=== PATIENT | male | born 1930 | race Caucasian/White ===

== ENCOUNTER 2018-06-18 03:23 | Emergency (ER) | payer BC ==
[2018-06-18 03:56] VITALS: BMI 31.4
--- NOTE | 2018-06-18 04:02 | PDOC ---
History of Present Illness - General Chief Complaint: Back Pain Stated Complaint: PAIN Time Seen by Provider: 06/18/18 04:02 History Source: Patient, Significant Other - History of Present Illness Initial Comments: 06/18/18 06:20 88-year-old male complaining of right-sided lower back pain and spasms for the last 1 week. Prior to arrival patient tried to get up from bed to the bathroom noted to have spasm of the right lower back patient reports that the legs went numb and gave out, patient slid off the bed onto the floor. No LOC or trauma to head report. Reports that. So lower back is worse with movement and when he has to spasm he has numbness to bilateral lower extremities. Past medical history of hypertension, hypercholesterolemia, on Coumadin therapy Past History - Past Medical History Allergies/Adverse Reactions: Allergies Allergy/AdvReac Type Severity Reaction Status Date / Time No Known Allergies Allergy Verified 06/18/18 03:57 Home Medications: Ambulatory Orders NK [No Known Home Medication] 06/18/18 - Suicide/Smoking/Psychosocial Hx Smoking History: Never smoked Have you smoked in the past 12 months: No Information on smoking cessation initiated: No Hx Alcohol Use: No Drug/Substance Use Hx: No Review of Systems - Review of Systems Able to Perform ROS?: Yes Is the patient limited Maltese proficient: No Constitutional: No: Symptoms Reported, See HPI, Chills, Diaphoresis, Fever, Loss of Appetite, Malaise, Night Sweats, Weakness, Weight Stable, Unintentional Wgt. Loss, Unexplained wgt Loss, Other *Physical Exam - Vital Signs Last Vital Signs Temp Pulse Resp BP Pulse Ox 99.2 F 84 18 131/57 L 97 06/18/18 03:23 06/18/18 03:23 06/18/18 03:23 06/18/18 03:23 06/18/18 03:23 - Physical Exam General Appearance: Yes: Appropriately Dressed Respiratory/Chest: positive: Lungs Clear, Normal Breath Sounds Gastrointestinal/Abdominal: positive: Normal Bowel Sounds, Soft Musculoskeletal: positive: Muscle Spasm (right lower back pain), Vertebral Tenderness (no midline tenderness) Extremity: positive: Normal Capillary Refill, Normal Inspection, Normal Range of Motion Integumentary: positive: Normal Color, Dry, Warm Neurologic: positive: Fully Oriented, Alert, Normal Mood/Affect Moderate Sedation - Procedure Monitoring Vital Signs: Procedure Monitoring Vital Signs Temperature 99.2 F 06/18/18 03:23 Pulse Rate 84 06/18/18 03:23 Respiratory Rate 18 06/18/18 03:23 Blood Pressure 131/57 L 06/18/18 03:23 O2 Sat by Pulse Oximetry (%) 97 06/18/18 03:23 Progress Note - Progress Note Progress Note: A: lower back pain P: lidocaine patch tylenol ct lumbar spine ua Medical Decision Making - Medical Decision Making 06/18/18 06:31 patient reports slight relief in pain. *DC/Admit/Observation/Transfer Diagnosis at time of Disposition: Back pain Qualifiers: Back pain location: low back pain Chronicity: acute Back pain laterality: right Sciatica presence: without sciatica Qualified Code(s): M54.5 - Low back pain - Discharge Dispostion Condition at time of disposition: Fair - Referrals Referrals: Alli Elizondo MD [Primary Care Provider] - - Patient Instructions - Post Discharge Activity
[2018-06-18] MEDS ORDERED: LIDOCAINE 5% TOPICAL PATCH TP ONE (04:23)
[2018-06-18] MEDS ORDERED: ACETAMINOPHEN 325 MG TABLET (FP) PO ONE (04:45)
[2018-06-18] MEDS ORDERED: ACETAMINOPHEN 325 MG TABLET (FP) ONE (05:07)
[2018-06-18] MEDS ORDERED: LIDOCAINE 5% TOPICAL PATCH ONE (05:07)
--- NOTE | 2018-06-18 07:56 | PDOC ---
*Physical Exam - Vital Signs Last Vital Signs Temp Pulse Resp BP Pulse Ox 99.2 F 84 18 131/57 L 97 06/18/18 03:23 06/18/18 03:23 06/18/18 03:23 06/18/18 03:23 06/18/18 03:23 - Physical Exam General Appearance: Yes: Appropriately Dressed. No: Apparent Distress HEENT: positive: Normal Voice Neck: positive: Supple Respiratory/Chest: negative: Respiratory Distress Gastrointestinal/Abdominal: positive: Soft. negative: Tender Musculoskeletal: negative: CVA Tenderness Integumentary: positive: Dry, Warm Neurologic: positive: Fully Oriented, Alert, Normal Mood/Affect ED Treatment Course - Medications Given in the ED: ED Medications Discontinued Medications Generic Name Dose Route Start Last Admin Trade Name Eloisa PRN Reason Stop Dose Admin Acetaminophen 650 mg 06/18/18 04:45 06/18/18 05:14 Tylenol - PO 06/18/18 04:46 650 mg ONCE ONE Administration Lidocaine 1 patch 06/18/18 04:23 06/18/18 05:14 Lidoderm Patch - TP 06/18/18 04:24 1 patch ONCE ONE Administration Medical Decision Making - Medical Decision Making 06/18/18 07:57 Patient s/p to me at 7am 88-year-old male, history of HTN, HLD, afib on coumadin, here with R lower back pain resulting in fall. Per prior team, no evidence of serious injuries on exam. Neuro intact. S/p CT LS which is pending. UA also pending. On reassessment, patient's pain has since improved. Reports that he's been having non-radiating R lower back pain 1 week, which caused him to fall onto buttocks last night as witnessed by . No head injury or LOC per pt and family and no LYNN, dizziness, n/v. No CP/dizziness prior to fall. Denies sensory changes, lower extremity weakness, bowel or bladder incontinence or saddle anesthesia. No trauma prior to back pain. Has not since discussed pain with his PMD. 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 Pt states pain has since improved w/ meds and is able to ambulate w/ cane in ED. UA neg. Stable for dc w / pain control. To f/u with pmd this week 06/18/18 09:56 *DC/Admit/Observation/Transfer Diagnosis at time of Disposition: Back pain Qualifiers: Back pain location: low back pain Chronicity: acute Back pain laterality: right Sciatica presence: without sciatica Qualified Code(s): M54.5 - Low back pain - Discharge Dispostion Disposition: HOME Condition at time of disposition: Improved - Prescriptions Prescriptions: Docusate Sodium [Colace] 100 mg PO DAILY #20 capsule Tramadol HCl 50 mg PO Q6H #15 tablet MDD 200 mg - Referrals Referrals: Alli Elizondo MD [Primary Care Provider] - - Patient Instructions Printed Discharge Instructions: DI for Low Back Pain Additional Instructions: Your CAT scan today did not show any alarming findings. You were given a copy to discuss with your PMD this week. You were started on pain medication and stool softeners to prevent constipation. Return to ER for worsening of symptoms - Post Discharge Activity
[2018-06-18 09:13] VITALS: BP 119/64; PULSE 59; TEMP 98.7
[2018-06-18 09:45] LABS: URINE APPEARANCE CLEAR; URINE BILIRUBIN NEGATIVE (<2.0 mg/dL); URINE COLOR LTYELLOW; URINE GLUCOSE (UA) NEGATIVE (NEGATIVE); URINE KETONE NEGATIVE (NEGATIVE); URINE LEUK ESTERASE NEGATIVE (NEGATIVE); URINE NITRITE NEGATIVE (NEGATIVE); URINE PROTEIN NEGATIVE (NEGATIVE); URINE UROBILINOGEN NEGATIVE mg/dL (0.2-1.0)
[2018-06-18 13:11] LABS: EPI CELLS FEW /HPF (FEW); URINE MUCUS 1+
[2018-06-18 13:12] LABS: URINE BACTERIA NONE SEEN /hpf (NONE SEEN)
[2018-06-18] MEDS ORDERED: LIDOCAINE PATCH REMOVAL MC SCH (22:00)
== END 2018-06-18 09:36 | disposition home or self-care (01) ==
LOC: JER 03:23
DX: M54.5 Low back pain (principal); W06.XXXA Fall from bed, initial encounter; Y93.89 Activity, other specified; Y92.013 Bedroom of single-family (private) house as the place of occurrence of the external cause; Y99.8 Other external cause status; I10 Essential (primary) hypertension; E78.00 Pure hypercholesterolemia, unspecified; Z79.01 Long term (current) use of anticoagulants
CPT/HCPCS: 72131-TC; 81003; 81015; 99281-25

== ENCOUNTER 2018-06-20 22:31 | Inpatient (IN) | payer BC ==
--- NOTE | 2018-06-20 23:30 | PDOC ---
Attending Attestation - HPI HPI: 06/20/18 23:49 Patient is an 88 year old male with a significant past medical history of hypertension, hypercholesterolemia, on Coumadin therapy who presents to the ED with complaints of collapse that occurred just prior to ED arrival. As per EMS patient experiencing a syncopal episode this evening prompting NH staff to bring him into the ED for further evaluation. As per patient's son, patient has experiencing altered mental status stating does not recognize his son and is not acting his baseline, as well as associated fever, tachycardia, diaphoresis. Patient was seen in the ED on June 18 for fall and was given, tylenol, lidocaine patch as well as Lumbar CT, and UA. Denies chest pain, sob. Denies nausea, vomiting. Denies chills. Denies dysuria, hematuria, Denies contact with sick individuals, out of state travelling. Denies any other symptoms. Allergies: None Social history: No smoking. No illicit drugs. No alcohol. Surgical history: None PMD: None - Physicial Exam PE: 06/20/18 23:49 Agree with residents Physical Exam. <Jin Gomes - Last Filed: 06/20/18 23:49> - Resident Resident Name: Genaro Parekh - ED Attending Attestation I have performed the following: I have examined & evaluated the patient, The case was reviewed & discussed with the resident, I agree w/resident's findings & plan - Medical Decision Making 06/21/18 02:27 88-year-old male with fever and weakness/altered mental status according to family Sepsis workup initiated, Zosyn and vancomycin given CT scans were performed of the chest abdomen and pelvis which showed no acute pathology Patient will be admitted to medical service for further evaluation 06/21/18 02:28 <Ashley Mendez - Last Filed: 06/21/18 02:29>
[2018-06-20] MEDS ORDERED: PIPERACILLIN/TAZOB 3.375 GM 3.375 GM in DEXTROSE 5%-WATER - 50 ML IVPB ONE (23:37)
[2018-06-20] MEDS ORDERED: VANCOMYCIN 1 GM in D5W (PRE-DOCKED) 1,000 MG/250 ML IVPB ONE (23:37)
[2018-06-20] MEDS ORDERED: ACETAMINOPHEN 1000 MG/100 ML VIAL (NON FORMULARY) IVPB ONE (23:37)
[2018-06-20] MEDS ORDERED: SODIUM CHLORIDE 1,000 ML IV STA (23:38)
[2018-06-21] MEDS ORDERED: ACETAMINOPHEN INJECTION 100 ML IVPB ONE (00:16)
[2018-06-21] MEDS ORDERED: PIPERACILLIN/TAZOB 3.375 GM 3.375 GM/50 ML BAG IVPB ONE (00:16)
[2018-06-21] MEDS ORDERED: VANCOMYCIN 1 GRAM (PRE-DOCKED) 1,000 MG/250 ML BAG IVPB ONE (00:16)
[2018-06-21 00:21] LABS: VENOUS PC02 41.8 mmHg (41-51); VENOUS PH 7.39 (7.31-7.41)
[2018-06-21 00:28] LABS: BASO % 0.3 % (0-2.0); EOS % 0.8 % (0-4.5); HEMOGLOBIN 14.1 GM/dL (11.7-16.9); LYMPH % 13.3 % (8-40); MCH 32.5 pg (25.7-33.7); MCHC 35.2 g/dl (32.0-35.9); MEAN CELL VOLUME 92.3 fl (80-96); MEAN PLT VOLUME 8.6 fl (7.5-11.1); MONO % 7.5 % (3.8-10.2); NEUT % 78.1 % (42.8-82.8); PLATELET COUNT 88 K/MM3 (134-434); RBC 4.33 M/mm3 (4.00-5.60); WHITE BLOOD COUNT 2.2 K/mm3 (4.0-10.0)
--- NOTE | 2018-06-21 00:29 | PDOC ---
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 His son states that he has not been his normal self, and was unable to recognize him today. Patient fell because one leg gave out and he grazed his head on the side of a table. Patient has been diaphoretic and very weak. Patient endorses pain to his right flank. No sick contacts. Patient was worked up for fall on , UA and CT lumbar spine were normal. Past History - Past Medical History Allergies/Adverse Reactions: Allergies Allergy/AdvReac Type Severity Reaction Status Date / Time No Known Allergies Allergy Verified 06/20/18 23:20 Home Medications: Ambulatory Orders Docusate Sodium [Colace] 100 mg PO DAILY #20 capsule 06/18/18 Tramadol HCl 50 mg PO Q6H #15 tablet MDD 200 mg 06/18/18 COPD: No - Immunization History Immunization Up to Date: (Unknown) - Suicide/Smoking/Psychosocial Hx Smoking History: Never smoked Have you smoked in the past 12 months: No Information on smoking cessation initiated: No Hx Alcohol Use: No Drug/Substance Use Hx: No Review of Systems - Review of Systems Able to Perform ROS?: Yes Comments:: 06/21/18 00:26 GENERAL/CONSTITUTIONAL: +fever +chills. +diffuse weakness. HEAD, EYES, EARS, NOSE AND THROAT: No change in vision. No sore throat. CARDIOVASCULAR: No chest pain or shortness of breath RESPIRATORY: No cough, wheezing, or hemoptysis. GASTROINTESTINAL: No nausea, vomiting, diarrhea or constipation. GENITOURINARY: No dysuria, frequency, or change in urination. MUSCULOSKELETAL: No joint or muscle swelling or pain. No neck pain, +r flank pain SKIN: No rash NEUROLOGIC: No headache, vertigo, loss of consciousness, or change in strength/ sensation. ENDOCRINE: No increased thirst. No abnormal weight change HEMATOLOGIC/LYMPHATIC: No anemia, easy bleeding, or history of blood clots. ALLERGIC/IMMUNOLOGIC: No hives or skin allergy. *Physical Exam - Vital Signs Last Vital Signs Temp Pulse Resp BP Pulse Ox 100.9 F H 122 H 18 154/90 98 06/20/18 23:20 06/20/18 23:20 06/20/18 23:20 06/20/18 23:20 06/20/18 23:20 - Physical Exam Comments: 06/21/18 00:26 GENERAL: Awake, alert, diaphoretic HEAD: No signs of trauma, normocephalic, atraumatic EYES: PERRLA, EOMI, sclera anicteric, conjunctiva clear ENT: Auricles normal inspection, hearing grossly normal, nares patent, oropharynx clear without exudates. Moist mucosa NECK: Normal ROM, supple, no lymphadenopathy, JVD, or masses LUNGS: No distress, speaks full sentences, clear to auscultation bilaterally HEART: Regular rate and rhythm, normal S1 and S2, no murmurs, rubs or gallops, peripheral pulses normal and equal bilaterally. ABDOMEN: Soft, nontender, normoactive bowel sounds. No guarding, no rebound. No masses. + R CVA tenderness EXTREMITIES: Normal range of motion, no edema. No clubbing or cyanosis. NEUROLOGICAL: Cranial nerves II through XII grossly intact. Normal speech, normal gait, no focal sensorimotor deficits SKIN: Warm, Dry, normal turgor, no rashes or lesions noted. Moderate Sedation - Procedure Monitoring Vital Signs: Procedure Monitoring Vital Signs Temperature 100.9 F H 06/20/18 23:20 Pulse Rate 122 H 06/20/18 23:20 Respiratory Rate 18 06/20/18 23:20 Blood Pressure 154/90 06/20/18 23:20 O2 Sat by Pulse Oximetry (%) 98 06/20/18 23:20 ED Treatment Course - LABORATORY CBC & Chemistry Diagram: 06/21/18 00:03 06/21/18 00:03 - RADIOLOGY Radiology Studies Ordered: Category Date Time Status CERVICAL SPINE CT W/O CONTR [CT] Stat CT Scan 06/21/18 01:[address] WITHOUT CONTRAST [CT] Stat CT Scan 06/21/18 01:00 Ordered CHEST X-RAY PORTABLE* [RAD] Stat Radiology 06/21/18 01:00 Ordered Medical Decision Making - Medical Decision Making 06/21/18 00:27 Patient is 88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 Septic. DDx for source , includes, but is not limited to: uti, pneumonia, flu. Will empirically treat with vanc and zosyn given patient's diaphoresis. Will start with 1L, give tylenol as well. Cultures gathered before antibiotic administration. Will do ct head/c-spine for trauma workup, no other apparent injuries noted other than small scrape on R elbow. 06/21/18 02:25 CT A/P/C shows no acute pathology. 4.4cm ascending aortic aneurysm, no pneumonia , no signs of appy or mishel or inflammation in RUQ. Cervical spine CT shows no fracture. My wet read of head CT shows no bleed or fracture. Pending official read, delay caused by power interruption during transmission to imaging radiation protection technician. UA shows no LE/Nitrites, no wbcs, rare bacteria. CBC shows leukopenia, trop of 0.08, likely pre-renal ALEXANDRE. Will admit. Unsure of source. Flu pending. Meningitis considered, but patient has normal rom in neck, no pain, no stiffness. 06/21/18 05:42 Case d/w Dr Linda. *DC/Admit/Observation/Transfer Diagnosis at time of Disposition: Fever - Discharge Dispostion Condition at time of disposition: Stable Decision to Admit order: Yes - Referrals - Patient Instructions - Post Discharge Activity
[2018-06-21 00:30] LABS: URINE APPEARANCE CLOUDY; URINE BILIRUBIN NEGATIVE (<2.0 mg/dL); URINE GLUCOSE (UA) NEGATIVE (NEGATIVE); URINE KETONE NEGATIVE (NEGATIVE); URINE LEUK ESTERASE NEGATIVE (NEGATIVE); URINE NITRITE NEGATIVE (NEGATIVE); URINE PROTEIN 2+ (NEGATIVE)
[2018-06-21 00:36] LABS: URINE COLOR YELLOW
[2018-06-21 00:39] LABS: INR 1.69 (0.83-1.09); PROTHROMBIN TIME (PATIENT) 20.1 SEC (9.7-13.0)
[2018-06-21 00:42] LABS: ACTIVATED PTT 31.5 SECONDS (25.2-36.5)
[2018-06-21 00:56] LABS: ALBUMIN 3.5 g/dl (3.4-5.0); ALK PHOS 53 U/L (45-117); ANION GAP 7 MMOL/L (8-16); BILIRUBIN,TOTAL 1.6 mg/dL (0.2-1); BLOOD UREA NITROGEN 38 mg/dL (7-18); CALCIUM 8.2 mg/dL (8.5-10.1); CHLORIDE 103 mmol/L (98-107); CO2 25 mmol/L (21-32); CREATININE 1.9 mg/dL (0.55-1.3); GLUCOSE,RANDOM 148 mg/dL (74-106); POTASSIUM 3.3 mmol/L (3.5-5.1); SGOT/AST 114 U/L (15-37); SGPT/ALT 43 U/L (13-61); SODIUM 135 mmol/L (136-145); TOT PROT 7.2 g/dl (6.4-8.2)
[2018-06-21 01:42] LABS: EPI CELLS RARE /HPF (FEW); URINE BACTERIA RARE /hpf (NONE SEEN); URINE MUCUS FEW
--- NOTE | 2018-06-21 04:54 | HP ---
CHIEF COMPLAINT: Fever and Fall PCP: HISTORY OF PRESENT ILLNESS: Pt. is an 88 y.o. M presenting after a fall at home because his leg "gave out." Pt. was recently seen in the ED 3 days ago for a similar episode. Workup was found to be negative at that time for acute pathology. Pt. was discharged on Flexeril 10mg. Per the daughter Pt. had improvement of the back pain. Pt. stated that he fell forward and "grazed his head on the table." Pt. denies any lightheadedness or dizziness before the fall and denies LOC. Pt. endorses tenderness of lower extremities particularly the lateral aspect of the left leg. Pt. endorses fever and diaphoresis. Pt. denies any chest pain, headache, shortness of breath, nausea, vomiting, changes in vision, neck pain, changes in bowel or urinary habits. ER course was notable for: (1)labs, EKG, LA (2)Head, C-Spine, Chest/abd/pel/ CT-scans (3) Recent Travel: No PAST MEDICAL HISTORY: HTN, HLD, DVTs(on Coumadin), Afib?(Prior documented however daughter denies ever hearing of this diagnosis), Back Pain, EtoH Abuse( Daughter denies however prior documentation) PAST SURGICAL HISTORY: Vascualar surgery on LE bilaterally x 7. Social History: Smoking: Former smoker quit 20 years ago Alcohol: Denied at first, then stated occasionally, then stated "drinks 1 glass of homemade wine everyday" Drugs: Denies Family History: Allergies No Known Allergies Allergy (Verified 06/20/18 23:20) HOME MEDICATIONS: Home Medications Medication Instructions Recorded Docusate Sodium [Colace] 100 mg PO DAILY #20 capsule 06/18/18 Tramadol HCl 50 mg PO Q6H #15 tablet MDD 200 mg 06/18/18 REVIEW OF SYSTEMS CONSTITUTIONAL: fever, chills, diaphoresis Absent: generalized weakness, malaise, loss of appetite, weight change HEENT: Absent: rhinorrhea, nasal congestion, throat pain, throat swelling, difficulty swallowing, mouth swelling, ear pain, eye pain, visual changes CARDIOVASCULAR: Absent: chest pain, syncope, palpitations, irregular heart rate, lightheadedness , peripheral edema RESPIRATORY: Absent: cough, shortness of breath, dyspnea with exertion, orthopnea, wheezing, stridor, hemoptysis GASTROINTESTINAL: Absent: abdominal pain, abdominal distension, nausea, vomiting, diarrhea, constipation, melena, hematochezia GENITOURINARY: right-side flank pain, Absent: dysuria, frequency, urgency, hesitancy, hematuria, genital pain MUSCULOSKELETAL: Absent: myalgia, arthralgia, joint swelling, back pain, neck pain SKIN: Absent: rash, itching, pallor HEMATOLOGIC/IMMUNOLOGIC: Absent: easy bleeding, easy bruising, lymphadenopathy, frequent infections ENDOCRINE: Absent: unexplained weight gain, unexplained weight loss, heat intolerance, cold intolerance NEUROLOGIC: unsteady gait Absent: headache, focal weakness or paresthesias, dizziness, seizure, mental status changes, bladder or bowel incontinence PSYCHIATRIC: Absent: anxiety, depression, suicidal or homicidal ideation, hallucinations. PHYSICAL EXAMINATION Vital Signs - 24 hr 06/20/18 23:20 Temperature 100.9 F H Pulse Rate 122 H Respiratory 18 Rate Blood Pressure 154/90 O2 Sat by Pulse 98 Oximetry (%) GENERAL: Awake, alert, in no acute distress. HEAD: Bruises on right ear and left frontal EYES: Pupils equal, round and reactive to light, extraocular movements intact, sclera anicteric, conjunctiva clear. EARS, NOSE, THROAT: Ears normal, nares patent, oropharynx clear without exudates. Moist mucous membranes. NECK: Normal range of motion, supple without lymphadenopathy, no carotid bruit, JVD or masses. LUNGS: Bibasilar crackles. No accessory muscle use. HEART: Regular rate and rhythm, normal S1 and S2 without murmur ABDOMEN: Soft, nontender, not distended, normoactive bowel sounds, no guarding, no rebound MUSCULOSKELETAL: Right flank tenderness UPPER EXTREMITIES: 2+ radial pulses, warm, well-perfused. Bruises on hands. No peripheral edema. LOWER EXTREMITIES: 2+ dorsal pedal pulses, warm, well-perfused. No calf tenderness. Trace edema. NEUROLOGICAL: Cranial nerves II-XII intact. Normal speech. Gait not assessed PSYCHIATRIC: Cooperative. Good eye contact. Appropriate mood and affect. SKIN: Warm, dry, normal turgor, normal capillary refill. Laboratory Results - last 24 hr 06/21/18 06/21/18 06/21/18 00:03 00:03 00:03 WBC 2.2 L RBC 4.33 Hgb 14.1 Hct 40.0 MCV 92.3 MCH 32.5 MCHC 35.2 RDW 14.0 Plt Count 88 L MPV 8.6 Absolute Neuts (auto) 1.7 Neutrophils % 78.1 Lymphocytes % 13.3 Monocytes % 7.5 Eosinophils % 0.8 Basophils % 0.3 Nucleated RBC % 0 PT with INR 20.10 H INR 1.69 H PTT (Actin FS) 31.5 VBG pH POC VBG pCO2 POC VBG pO2 VBG HCO3 VBG O2 Sat (Fadia) VBG Base Excess Sodium Potassium Chloride Carbon Dioxide Anion Gap BUN Creatinine Creat Clearance w eGFR Random Glucose Lactic Acid Calcium Total Bilirubin AST ALT Alkaline Phosphatase Troponin I Total Protein Albumin Urine Color Yellow Urine Appearance Cloudy Urine pH 5.0 Ur Specific [place] 1.019 Urine Protein 2+ H Urine Glucose (UA) Negative Urine Ketones Negative Urine Blood 2+ H Urine Nitrite Negative Urine Bilirubin Negative Urine Urobilinogen 2.0 Ur Leukocyte Esterase Negative Urine WBC (Auto) 1 Urine RBC (Auto) 6 Ur Epithelial Cells Rare Urine Bacteria Rare Urine Mucus Few Influenza A (Rapid) Influenza B (Rapid) 06/21/18 06/21/18 06/21/18 00:03 00:03 00:03 WBC RBC Hgb Hct MCV MCH MCHC RDW Plt Count MPV Absolute Neuts (auto) Neutrophils % Lymphocytes % Monocytes % Eosinophils % Basophils % Nucleated RBC % PT with INR INR PTT (Actin FS) VBG pH 7.39 POC VBG pCO2 41.8 POC VBG pO2 25.0 L VBG HCO3 24.6 VBG O2 Sat (Fadia) 43.8 L VBG Base Excess 0 Sodium 135 L Potassium 3.3 L Chloride 103 Carbon Dioxide 25 Anion Gap 7 L BUN 38 H Creatinine 1.9 H Creat Clearance w eGFR 33.78 Random Glucose 148 H Lactic Acid 1.2 Calcium 8.2 L Total Bilirubin 1.6 H AST 114 H ALT 43 Alkaline Phosphatase 53 Troponin I 0.08 H Total Protein 7.2 Albumin 3.5 Urine Color Urine Appearance Urine pH Ur Specific [place] Urine Protein Urine Glucose (UA) Urine Ketones Urine Blood Urine Nitrite Urine Bilirubin Urine Urobilinogen Ur Leukocyte Esterase Urine WBC (Auto) Urine RBC (Auto) Ur Epithelial Cells Urine Bacteria Urine Mucus Influenza A (Rapid) Influenza B (Rapid) 06/21/18 02:07 WBC RBC Hgb Hct MCV MCH MCHC RDW Plt Count MPV Absolute Neuts (auto) Neutrophils % Lymphocytes % Monocytes % Eosinophils % Basophils % Nucleated RBC % PT with INR INR PTT (Actin FS) VBG pH POC VBG pCO2 POC VBG pO2 VBG HCO3 VBG O2 Sat (Fadia) VBG Base Excess Sodium Potassium Chloride Carbon Dioxide Anion Gap BUN Creatinine Creat Clearance w eGFR Random Glucose Lactic Acid Calcium Total Bilirubin AST ALT Alkaline Phosphatase Troponin I Total Protein Albumin Urine Color Urine Appearance Urine pH Ur Specific [place] Urine Protein Urine Glucose (UA) Urine Ketones Urine Blood Urine Nitrite Urine Bilirubin Urine Urobilinogen Ur Leukocyte Esterase Urine WBC (Auto) Urine RBC (Auto) Ur Epithelial Cells Urine Bacteria Urine Mucus Influenza A (Rapid) Negative Influenza B (Rapid) Negative ASSESSMENT/PLAN: Pt. is an 88 y.o. M w/ PMHx. of HTN, HLD, DVTs(on Coumadin), Afib?(Prior documented however daughter denies ever hearing of this diagnosis), Back Pain, EtoH Abuse( Daughter denies however prior documentation) presenting after a fall at home because his leg "gave out." #Fever of unknown Origin CT- C/A/P siginificant for bilateral dependent lung atelectasis UA-/equivocal received Vancomycin and Zosyn in ED; given 2gm Ceftriaxone and prophylaxis for meningitis f/u ID(Dr. Husain) and Neurology(Dr. Hopper) consults--> consider Lumbar Puncture Temperature to 100.9 LA: 1.2 WBC: 2.2k- May be related to another pathology, consider hematology consult for bone marrow suppression #New Onset Afib? c/w Coumadin Pt. denies Hx. of A.Fib despite prior documentation of it in previous visit. f/u Cardiology consult (Dr. Arechiga) consider starting rate controlling agent, Metoprolol 25mg #ALEXANDRE f/u Urine Cx. #Tropinemia Trop: 0.08, will trend likely 2/2 to fall and related to skeletal muscle damage #ETOH Abuse CIWA score less than 7 AST:114, ALT: 43, TBili-1.6 c/w Librium protocol #FEN encourage PO intake monitor electrolytes and replete as needed Sodium controlled-diet #DVT Ppx. c/w Coumadin Visit type - Emergency Visit Emergency Visit: Yes ED Registration Date: 06/21/18 Care time: The patient presented to the Emergency Department on the above date and was hospitalized for further evaluation of their emergent condition. - New Patient This patient is new to me today: Yes Date on this admission: 06/21/18 - Critical Care Critical Care patient: No
--- NOTE | 2018-06-21 05:37 | PN ---
Teaching Attending Note Name of Resident: Petey Linda ATTENDING PHYSICIAN STATEMENT I saw and evaluated the patient. I reviewed the resident's note and discussed the case with the resident. I agree with the resident's findings and plan as documented. SUBJECTIVE: Patient is an 88 year old man with PMH of hypertension, hypercholesterolemia, alcohol abuse, recent falls and ?Afib (?on Coumadin) who presents to the ER with complaints of collapse that occurred just prior to ER arrival. As per EMS patient had a syncopal episode this evening prompting [facility] staff to bring him into the ER for further evaluation. As per patient's son, patient has experiencing altered mental status stating does not recognize his son and is not acting his baseline, as well as associated fever, tachycardia, diaphoresis. Patient was seen in the ER on June 18 for fall and was given, tylenol, lidocaine patch as well as Lumbar CT, and UA. Denies chest pain, SOB, nausea, vomiting, chills, dysuria, hematuria, headache, photophobia, neck pain or blurry vision. Denies contact with sick individuals or out of state travelling. OBJECTIVE: Alert Vital Signs Period Temp Pulse Resp BP Sys/Rinaldi Pulse Ox Last 24 Hr 100.9 F 122 18 154/90 98 HEENT: No Jaundice, eye redness or discharge, PERRLA, EOMI. Normocephalic, bruise on side of head. External ears are normal and hearing is grossly intact. No nasal discharge. Neck: Supple, nontender. No neck stiffness or limitation in ROM. No palpable adenopathy or thyromegaly. No JVD Chest: Good effort. Clear to auscultation and percussion. Heart: Irregularly irregular. No S3, rub or murmur Abdomen: Not distended, soft, low back tenderness, right flank tenderness; no HSM. No rebound or guarding. Normal bowel sounds. Ext: Peripheral pulses intact. No leg edema. Skin: Warm and dry. No petechiae, rash or ecchymosis. Abrasions on right elbow, limbs and abdomen. Neuro: Alert. Oriented x3. CN 2-12 grossly intact. Sensation grossly intact in all four extremities and DTR are symmetric. Psych: Appropriate mood and affect. Good insight. Current Medications Generic Name Dose Route Start Last Admin Trade Name Freq PRN Reason Stop Dose Admin Docusate Sodium 100 mg 06/21/18 10:00 Colace - PO DAILY [facility] Home Medications Medication Instructions Recorded Docusate Sodium [Colace] 100 mg PO DAILY #20 capsule 06/18/18 Tramadol HCl 50 mg PO Q6H #15 tablet MDD 200 mg 06/18/18 Abnormal Lab Results 06/21/18 06/21/18 06/21/18 00:03 00:03 00:03 WBC 2.2 L Plt Count 88 L PT with INR 20.10 H INR 1.69 H POC VBG pO2 VBG O2 Sat (Fadia) Sodium Potassium Anion Gap BUN Creatinine Random Glucose Calcium Total Bilirubin AST Troponin I Urine Protein 2+ H Urine Blood 2+ H 06/21/18 06/21/18 00:03 00:03 WBC Plt Count PT with INR INR POC VBG pO2 25.0 L VBG O2 Sat (Fadia) 43.8 L Sodium 135 L Potassium 3.3 L Anion Gap 7 L BUN 38 H Creatinine 1.9 H Random Glucose 148 H Calcium 8.2 L Total Bilirubin 1.6 H AST 114 H Troponin I 0.08 H Urine Protein Urine Blood ASSESSMENT AND PLAN: 1. SIRS/Syncope - There is no obvious source of infection. C-spine CT, Head CT and chest CT done. Only significant findings include increased aortic aneurysm, small gall stones and bilateral dependent lung atelectasis. Sepsis workup was done in the ER and he got Vancomycin and Zosyn and repeat temp was 97.9, his pulse improved and lactic acid was 1.2. Though meningitis is less likely, will add Rocephin to his regimen, get lumbar puncture and consult ID and Neurology. Get EEG, carotid doppler and ECHO to investigate falls. Ask neurology whether a brain MRI is warranted. Leukopenia and low platelets may reflect effect of alcohol or undiagnosed bone marrow disease. Consult hematology. Trend LFTs and if back pain persists may need lumbosacral MRI to rule out vertebrae osteomyelitis or diskitis. Elevated troponin may be due to ALEXANDRE and/or demand ischemia. EKG shows afib with no significant [id number]. Monitor on telemetry and rule out ACS. Get ECHO. Patient is supposedly on coumadin but the dose in unknown. Will contact his pharmacy/PCP during the daytime to verify dose. 2. ALEXANDRE - Cause unclear. Etiology of hypokalemia in unknown. Check Mg+ level, give KCL and monitor BMP. Get renal sonogram. Consult nephrology and avoid nephrotoxic agents such as NSAIDS, aminoglycosides, contrast dyes and certain Alternative medicine products. 3. Hypertension - Restart outpatient antihypertensive drugs and revise regimen to ensure smooth [id number] good BP control. Nonpharmacologic measures to control hypertension like weight loss, salt restriction and exercise discussed. 4. Alcohol abuse - Implement CIWA ativan alcohol withdrawal protocol, neurochecks, seizure, fall and aspiration precautions. Treat with thiamine and folic acid and monitor electrolytes (Ca,Mg,K,P). [employer] patient about abstaining from alcohol and refer to alcohol detox upon discharge. 5. DVT prophylaxis - On Coumadin? 6. Advance directives - Full code
[2018-06-21] MEDS ORDERED: CEFTRIAXONE 2 GM in DEXTROSE 5%-WATER 100 ML IVPB ONE (06:15)
[2018-06-21 07:17] LABS: HEMATOCRIT 36.6 % (35.4-49); HEMOGLOBIN 12.9 GM/dL (11.7-16.9); MCH 32.5 pg (25.7-33.7); MCHC 35.2 g/dl (32.0-35.9); MEAN CELL VOLUME 92.3 fl (80-96); MEAN PLT VOLUME 8.7 fl (7.5-11.1); PLATELET COUNT 83 K/MM3 (134-434); RBC 3.97 M/mm3 (4.00-5.60); RDW 13.9 % (11.9-15.9); WHITE BLOOD COUNT 2.2 K/mm3 (4.0-10.0)
[2018-06-21] MEDS ORDERED: chlordiazePOXIDE 5 MG CAPSULE PO PRN (07:17)
[2018-06-21 07:39] LABS: ALBUMIN 3.1 g/dl (3.4-5.0); ALK PHOS 50 U/L (45-117); ANION GAP 6 MMOL/L (8-16); BILIRUBIN,TOTAL 1.3 mg/dL (0.2-1); BLOOD UREA NITROGEN 32 mg/dL (7-18); CALCIUM 7.9 mg/dL (8.5-10.1); CHLORIDE 108 mmol/L (98-107); CO2 25 mmol/L (21-32); CREATININE 1.7 mg/dL (0.55-1.3); GLUCOSE,RANDOM 111 mg/dL (74-106); MAGNESIUM 2.5 mg/dL (1.8-2.4); PHOSPHOROUS 3.5 mg/dL (2.5-4.9); POTASSIUM 3.7 mmol/L (3.5-5.1); SGOT/AST 93 U/L (15-37); SGPT/ALT 36 U/L (13-61); SODIUM 139 mmol/L (136-145); TOT PROT 6.5 g/dl (6.4-8.2)
[2018-06-21] MEDS ORDERED: CEFTRIAXONE 2 GM/100 ML BAG IVPB ONE (09:02)
--- NOTE | 2018-06-21 09:38 | CON.CARD ---
Consult Consult Specialty:: Cardiology Referred by:: Hospitalist Medicine Reason for Consultation:: Syncope - History of Present Illness Chief Complaint: Syncope History of Present Illness: Patient is an 88 year old man with PMH of hypertension, hypercholesterolemia, alcohol abuse, recent falls and left PAD with multlievel arterial thrombosis, afib maintained on Coumadin referred for syncopal episode. As per EMS patient had a syncopal episode this evening prompting [facility] staff to bring him into the ER for further evaluation. As per patient's son, patient has experiencing altered mental status stating does not recognize his son and is not acting his baseline, as well as associated fever, tachycardia, diaphoresis. Patient was seen in the ER on June 18 for fall and was given, tylenol, lidocaine patch as well as Lumbar CT, and UA. Denies chest pain, SOB, nausea, vomiting, chills, dysuria, hematuria, headache, photophobia, neck pain or blurry vision. Denies contact with sick individuals or out of state travelling. - Alcohol/Substance Use Hx Alcohol Use: No - Smoking History Smoking history: Never smoked Have you smoked in the past 12 months: No Home Medications - Allergies Allergies/Adverse Reactions: Allergies Allergy/AdvReac Type Severity Reaction Status Date / Time No Known Allergies Allergy Verified 06/20/18 23:20 - Home Medications Home Medications: Ambulatory Orders Docusate Sodium [Colace] 100 mg PO DAILY #20 capsule 06/18/18 Tramadol HCl 50 mg PO Q6H #15 tablet MDD 200 mg 06/18/18 Vital Signs: Vital Signs Temperature 98.2 F 06/21/18 08:39 Pulse Rate 98 H 06/21/18 08:39 Respiratory Rate 16 06/21/18 08:39 Blood Pressure 114/71 06/21/18 08:39 O2 Sat by Pulse Oximetry (%) 94 L 06/21/18 08:39 - Other Data Labs, Other Data: CBC, BMP 06/21/18 07:00 06/21/18 06:00 INR, PTT INR 1.69 (0.83-1.09) H 06/21/18 00:03 Troponin, BNP 06/21/18 00:03 Troponin I 0.08 H Troponin, BNP 06/21/18 00:03 Troponin I 0.08 H Afib @ 108 nonspec T changes Imaging - Results Chest X-ray: Report Reviewed (NAD) Cat Scan: Report Reviewed (4.3 cm ascending aorta, old granulomatous disease) Assessment/Plan 1. SIRS/Syncope - There is no obvious source of infection. C-spine CT, Head CT and chest CT done. Only significant findings include increased aortic aneurysm, small gall stones and bilateral dependent lung atelectasis. Sepsis workup was done in the ER and he got Vancomycin and Zosyn and repeat temp was 97.9, his pulse improved and lactic acid was 1.2. Though meningitis is less likely, will add Rocephin to his regimen, get lumbar puncture and consult ID and Neurology. Get EEG, carotid doppler and ECHO to investigate falls. Ask neurology whether a brain MRI is warranted. Leukopenia and low platelets may reflect effect of alcohol or undiagnosed bone marrow disease. Consult hematology. Trend LFTs and if back pain persists may need lumbosacral MRI to rule out vertebrae osteomyelitis or diskitis. Elevated troponin may be due to ALEXANDRE and/or demand ischemia. EKG shows afib with no significant [id number]. Monitor on telemetry and rule out ACS. Get ECHO. Patient is supposedly on coumadin but the dose in unknown. Will contact his pharmacy/PCP during the daytime to verify dose. 2. ALEXANDRE - Cause unclear. Etiology of hypokalemia in unknown. Check Mg+ level, give KCL and monitor BMP. Get renal sonogram. Consult nephrology and avoid nephrotoxic agents such as NSAIDS, aminoglycosides, contrast dyes and certain Alternative medicine products. 3. Hypertension - Restart outpatient antihypertensive drugs and revise regimen to ensure smooth [id number]-[id number] good BP control. Nonpharmacologic measures to control hypertension like weight loss, salt restriction and exercise discussed. 4. Alcohol abuse - Implement CIWA ativan alcohol withdrawal protocol, neurochecks, seizure, fall and aspiration precautions. Treat with thiamine and folic acid and monitor electrolytes (Ca,Mg,K,P). [employer] patient about abstaining from alcohol and refer to alcohol detox upon discharge. 5. DVT prophylaxis - On Coumadin? 6. Advance directives - Full code
[2018-06-21] MEDS: DOCUSATE SODIUM 100 MG CAPSULE (FP) PO SCH (10:22)
--- NOTE | 2018-06-21 10:49 | EKG ---
Test Reason : Blood Pressure : / mmHG Vent. Rate : 108 BPM Atrial Rate : 075 BPM P-R Int : 000 ms QRS Dur : 084 ms QT Int : 342 ms P-R-T Axes : 000 -17 -02 degrees QTc Int : 458 ms ATRIAL FIBRILLATION WITH RAPID VENTRICULAR RESPONSE NONSPECIFIC T WAVE ABNORMALITY ABNORMAL ECG NO PREVIOUS ECGS AVAILABLE Confirmed by DALLIN RAPP, HARJINDER ([id number]) on 06/21/2018 10:49:39 AM Referred By: Confirmed By:HARJINDER ZAMARRIPA MD
--- NOTE | 2018-06-21 11:24 | PN ---
Physical Exam: SUBJECTIVE: Patient seen and examined; admitted s/p multiple falls at home with back, hip pain; presented with low grade fever, leukopenic, thrombocytopenic; currently c/o back pain, right hip pain; denies fever, chills, n, v, d, abdominal pain, melena. OBJECTIVE: Vital Signs Period Temp Pulse Resp BP Sys/Rinaldi Pulse Ox Last 24 Hr 98.2 F-100.9 F 98-122 16-18 101-154/48-90 94-98 GENERAL: The patient is awake, alert, and fully oriented, in no acute distress. HEAD: Normal with no signs of trauma. EYES: PERRL, extraocular movements intact, sclera anicteric, conjunctiva clear. No ptosis. ENT: Ears normal, nares patent, oropharynx clear without exudates, moist mucous membranes. +dentures; NECK: Trachea midline, full range of motion, supple. LUNGS: decreased breath sounds HEART: Regular rate and rhythm, S1, S2 Breast/axilla; no masses ; lumps or nipple discharge ABDOMEN: Soft, nontender, nondistended, normoactive bowel sounds, no guarding, no rebound, no hepatosplenomegaly, no masses. EXTREMITIES: 2+ pulses, warm, well-perfused, no edema. Chronic venous stasis changes ; + bulging varicose veins; small abraision on right knee ; no open wounds NEUROLOGICAL: Cranial nerves II through XII grossly intact. Normal speech, gait not observed. PSYCH: Normal mood, normal affect. Laboratory Results - last 24 hr 06/21/18 06/21/18 06/21/18 00:03 00:03 00:03 WBC 2.2 L RBC 4.33 Hgb 14.1 Hct 40.0 MCV 92.3 MCH 32.5 MCHC 35.2 RDW 14.0 Plt Count 88 L MPV 8.6 Absolute Neuts (auto) 1.7 Neutrophils % 78.1 Lymphocytes % 13.3 Monocytes % 7.5 Eosinophils % 0.8 Basophils % 0.3 Nucleated RBC % 0 PT with INR 20.10 H INR 1.69 H PTT (Actin FS) 31.5 VBG pH POC VBG pCO2 POC VBG pO2 VBG HCO3 VBG O2 Sat (Fadia) VBG Base Excess Sodium Potassium Chloride Carbon Dioxide Anion Gap BUN Creatinine Creat Clearance w eGFR Random Glucose Lactic Acid Calcium Phosphorus Magnesium Total Bilirubin AST ALT Alkaline Phosphatase Troponin I Total Protein Albumin Urine Color Yellow Urine Appearance Cloudy Urine pH 5.0 Ur Specific [place] 1.019 Urine Protein 2+ H Urine Glucose (UA) Negative Urine Ketones Negative Urine Blood 2+ H Urine Nitrite Negative Urine Bilirubin Negative Urine Urobilinogen 2.0 Ur Leukocyte Esterase Negative Urine WBC (Auto) 1 Urine RBC (Auto) 6 Ur Epithelial Cells Rare Urine Bacteria Rare Urine Mucus Few Alcohol, Quantitative Influenza A (Rapid) Influenza B (Rapid) 06/21/18 06/21/18 06/21/18 00:03 00:03 00:03 WBC RBC Hgb Hct MCV MCH MCHC RDW Plt Count MPV Absolute Neuts (auto) Neutrophils % Lymphocytes % Monocytes % Eosinophils % Basophils % Nucleated RBC % PT with INR INR PTT (Actin FS) VBG pH 7.39 POC VBG pCO2 41.8 POC VBG pO2 25.0 L VBG HCO3 24.6 VBG O2 Sat (Fadia) 43.8 L VBG Base Excess 0 Sodium 135 L Potassium 3.3 L Chloride 103 Carbon Dioxide 25 Anion Gap 7 L BUN 38 H Creatinine 1.9 H Creat Clearance w eGFR 33.78 Random Glucose 148 H Lactic Acid 1.2 Calcium 8.2 L Phosphorus Magnesium Total Bilirubin 1.6 H AST 114 H ALT 43 Alkaline Phosphatase 53 Troponin I 0.08 H Total Protein 7.2 Albumin 3.5 Urine Color Urine Appearance Urine pH Ur Specific [place] Urine Protein Urine Glucose (UA) Urine Ketones Urine Blood Urine Nitrite Urine Bilirubin Urine Urobilinogen Ur Leukocyte Esterase Urine WBC (Auto) Urine RBC (Auto) Ur Epithelial Cells Urine Bacteria Urine Mucus Alcohol, Quantitative Influenza A (Rapid) Influenza B (Rapid) 06/21/18 06/21/18 06/21/18 02:07 06:00 06:36 WBC RBC Hgb Hct MCV MCH MCHC RDW Plt Count MPV Absolute Neuts (auto) Neutrophils % Lymphocytes % Monocytes % Eosinophils % Basophils % Nucleated RBC % PT with INR INR PTT (Actin FS) VBG pH POC VBG pCO2 POC VBG pO2 VBG HCO3 VBG O2 Sat (Fadia) VBG Base Excess Sodium 139 Potassium 3.7 Chloride 108 H Carbon Dioxide 25 Anion Gap 6 L BUN 32 H Creatinine 1.7 H Creat Clearance w eGFR 38.41 Random Glucose 111 H Lactic Acid 1.0 Calcium 7.9 L Phosphorus 3.5 Magnesium 2.5 H Total Bilirubin 1.3 H AST 93 H ALT 36 Alkaline Phosphatase 50 Troponin I Total Protein 6.5 Albumin 3.1 L Urine Color Urine Appearance Urine pH Ur Specific [place] Urine Protein Urine Glucose (UA) Urine Ketones Urine Blood Urine Nitrite Urine Bilirubin Urine Urobilinogen Ur Leukocyte Esterase Urine WBC (Auto) Urine RBC (Auto) Ur Epithelial Cells Urine Bacteria Urine Mucus Alcohol, Quantitative Influenza A (Rapid) Negative Influenza B (Rapid) Negative 06/21/18 06/21/18 07:00 08:45 WBC 2.2 L RBC 3.97 L Hgb 12.9 Hct 36.6 MCV 92.3 MCH 32.5 MCHC 35.2 RDW 13.9 Plt Count 83 L MPV 8.7 Absolute Neuts (auto) Neutrophils % Lymphocytes % Monocytes % Eosinophils % Basophils % Nucleated RBC % PT with INR INR PTT (Actin FS) VBG pH POC VBG pCO2 POC VBG pO2 VBG HCO3 VBG O2 Sat (Fadia) VBG Base Excess Sodium Potassium Chloride Carbon Dioxide Anion Gap BUN Creatinine Creat Clearance w eGFR Random Glucose Lactic Acid Calcium Phosphorus Magnesium Total Bilirubin AST ALT Alkaline Phosphatase Troponin I Total Protein Albumin Urine Color Urine Appearance Urine pH Ur Specific [place] Urine Protein Urine Glucose (UA) Urine Ketones Urine Blood Urine Nitrite Urine Bilirubin Urine Urobilinogen Ur Leukocyte Esterase Urine WBC (Auto) Urine RBC (Auto) Ur Epithelial Cells Urine Bacteria Urine Mucus Alcohol, Quantitative < 3.0 Influenza A (Rapid) Influenza B (Rapid) Active Medications Generic Name Dose Route Start Last Admin Trade Name Freq PRN Reason Stop Dose Admin Docusate Sodium 100 mg 06/21/18 10:00 06/21/18 10:22 Colace - PO 100 mg DAILY [facility] Administration ASSESSMENT/PLAN: This is 88 year old male with a history of severe peripheral vascular disease, dvt on warfarin, HTN, HLD, multiple recent falls who presents after another fall at home. Presented in pain with low grade fever, leukopenia and thrombocytopenia. #SIRS+ with leukopenia and thrombocytopenia -most likely viral infection -IVF , Tylenol for pain -leukopenia possible secondary to viral infection; flu swab negative; will order urine antigens; rsv -chart review indicates alcohol abuse; although patient only drinks small glass of wine per night as per family -work up for thrombocytopenia b12 , foale, tsh, abdominal US -patient sister that of leukemia; MCV elevated; if b12, folate normal ; would order flow, fish, cytogenetics for MDS w/u -due to back pain, urine proteins +; albumin to globulin ratio <1 with leukopenia; will order SPEP for dysproteinemia w/u -arelis heme/onc recs #new onset afib?; -family unaware -INR: 1.69; -start 3mg daily -rate control lopressor 25 bid with holding parameters #Fall: -CT HEAD,NECK , ABD, PELVIS without acute abnormalities. -pain control; PT #ALEXANDRE - #PVD; hxt DVT: warfarin subtherapeutiv -as per family his warfarin was recently decreased 2.5 - #HTN: -norvas at home; -will hold due to to low bp #HLD: -statin VTE: cont warfarin GI: na Visit type - Emergency Visit Emergency Visit: Yes ED Registration Date: 06/21/18 Care time: The patient presented to the Emergency Department on the above date and was hospitalized for further evaluation of their emergent condition. - New Patient This patient is new to me today: Yes Date on this admission: 06/21/18 - Critical Care Critical Care patient: No
[2018-06-21] MEDS ORDERED: WARFARIN NA 3 MG TABLET PO ONE (11:54)
[2018-06-21] MEDS ORDERED: chlordiazePOXIDE HCL 25 MG CAPSULE PO PRN (12:23)
[2018-06-21] MEDS ORDERED: WARFARIN NA 1 MG TABLET (FP) ONE (12:27)
[2018-06-21] MEDS ORDERED: METOPROLOL TARTRATE 25 MG TABLET (FP) ONE (12:28)
[2018-06-21] MEDS: METOPROLOL TARTRATE 25 MG TABLET (FP) PO SCH ×2 (12:46→22:13)
--- NOTE | 2018-06-21 12:55 | CON.CARD ---
Cardiology Consult (text) - Consultation Consultation Note: cc: fall hpi: 88 m hx htn, hld, pad s/ multiple le surgeries, here after fall. Has been having back pain lately and it was very bad and he was trying to get out of bed but pain made him fall. No prodrome sxs. No loc. No cp sob palps dizzy loc pnd orthopnea le edema. Sees me for cardio. pmh: per hpi psh: le revascularizations/bypass social: ex tob fam: no premature cad ros: no nvd, cough had gib hematuria, gib, dysuria. +fever, +back pain. all others negative meds: Home Medications Medication Instructions Recorded Docusate Sodium [Colace] 100 mg PO DAILY #20 capsule 06/18/18 Tramadol HCl 50 mg PO Q6H #15 tablet MDD 200 mg 06/18/18 Cyclobenzaprine HCl [Flexeril 10 10 mg PO BID PRN 06/21/18 mg] Warfarin Sodium [Coumadin] 2.5 mg PO DAILY 06/21/18 pe: Vital Signs Period Temp Pulse Resp BP Sys/Rinaldi Pulse Ox Last 24 Hr 98.2 F-100.9 F 98-122 16-20 101-154/48-90 94-98 nad no jvd irreg s1s2 no mrg cta bl nl eff aaox3 no le e/c/c abd nt nd pos bs no jaundice diaphoresis pos dp pt no carotid bruits Laboratory Last Values WBC 2.2 K/mm3 (4.0-10.0) L 06/21/18 07:00 RBC 3.97 M/mm3 (4.00-5.60) L 06/21/18 07:00 Hgb 12.9 GM/dL (11.7-16.9) 06/21/18 07:00 Hct 36.6 % (35.4-49) 06/21/18 07:00 MCV 92.3 fl (80-96) 06/21/18 07:00 MCH 32.5 pg (25.7-33.7) 06/21/18 07:00 MCHC 35.2 g/dl (32.0-35.9) 06/21/18 07:00 RDW 13.9 % (11.9-15.9) 06/21/18 07:00 Plt Count 83 K/MM3 (134-434) L 06/21/18 07:00 MPV 8.7 fl (7.5-11.1) 06/21/18 07:00 Absolute Neuts (auto) 1.7 K/mm3 (1.5-8.0) 06/21/18 00:03 Neutrophils % 78.1 % (42.8-82.8) 06/21/18 00:03 Lymphocytes % 13.3 % (8-40) 06/21/18 00:03 Monocytes % 7.5 % (3.8-10.2) 06/21/18 00:03 Eosinophils % 0.8 % (0-4.5) 06/21/18 00:03 Basophils % 0.3 % (0-2.0) 06/21/18 00:03 Nucleated RBC % 0 % (0-0) 06/21/18 00:03 PT with INR 20.10 SEC (9.7-13.0) H 06/21/18 00:03 INR 1.69 (0.83-1.09) H 06/21/18 00:03 PTT (Actin FS) 31.5 SECONDS (25.2-36.5) 06/21/18 00:03 VBG pH 7.39 (7.31-7.41) 06/21/18 00:03 POC VBG pCO2 41.8 mmHg (41-51) 06/21/18 00:03 POC VBG pO2 25.0 mmHg (30-40) L 06/21/18 00:03 VBG HCO3 24.6 mmol/L (23-29) 06/21/18 00:03 VBG O2 Sat (Fadia) 43.8 % (70-80) L 06/21/18 00:03 VBG Base Excess 0 meq/l (-2-2) 06/21/18 00:03 Sodium 139 mmol/L (136-145) 06/21/18 06:00 Potassium 3.7 mmol/L (3.5-5.1) 06/21/18 06:00 Chloride 108 mmol/L (98-107) H 06/21/18 06:00 Carbon Dioxide 25 mmol/L (21-32) 06/21/18 06:00 Anion Gap 6 MMOL/L (8-16) L 06/21/18 06:00 BUN 32 mg/dL (7-18) H 06/21/18 06:00 Creatinine 1.7 mg/dL (0.55-1.3) H 06/21/18 06:00 Creat Clearance w eGFR 38.41 (>60) 06/21/18 06:00 Random Glucose 111 mg/dL (74-106) H 06/21/18 06:00 Lactic Acid 1.0 mmol/L (0.4-2.0) 06/21/18 06:36 Calcium 7.9 mg/dL (8.5-10.1) L 06/21/18 06:00 Phosphorus 3.5 mg/dL (2.5-4.9) 06/21/18 06:00 Magnesium 2.5 mg/dL (1.8-2.4) H 06/21/18 06:00 Total Bilirubin 1.3 mg/dL (0.2-1) H 06/21/18 06:00 AST 93 U/L (15-37) H 06/21/18 06:00 ALT 36 U/L (13-61) 06/21/18 06:00 Alkaline Phosphatase 50 U/L (45-117) 06/21/18 06:00 Troponin I 0.08 ng/ml (0.00-0.05) H 06/21/18 00:03 Total Protein 6.5 g/dl (6.4-8.2) 06/21/18 06:00 Albumin 3.1 g/dl (3.4-5.0) L 06/21/18 06:00 Urine Color Yellow 06/21/18 00:03 Urine Appearance Cloudy 06/21/18 00:03 Urine pH 5.0 (5.0-8.0) 06/21/18 00:03 Ur Specific [place] 1.019 (1.010-1.035) 06/21/18 00:03 Urine Protein 2+ (NEGATIVE) H 06/21/18 00:03 Urine Glucose (UA) Negative (NEGATIVE) 06/21/18 00:03 Urine Ketones Negative (NEGATIVE) 06/21/18 00:03 Urine Blood 2+ (NEGATIVE) H 06/21/18 00:03 Urine Nitrite Negative (NEGATIVE) 06/21/18 00:03 Urine Bilirubin Negative (<2.0 mg/dL) 06/21/18 00:03 Urine Urobilinogen 2.0 mg/dL (0.2-1.0) 06/21/18 00:03 Ur Leukocyte Esterase Negative (NEGATIVE) 06/21/18 00:03 Urine WBC (Auto) 1 /hpf (3-5) 06/21/18 00:03 Urine RBC (Auto) 6 /hpf (0-3) 06/21/18 00:03 Ur Epithelial Cells Rare /HPF (FEW) 06/21/18 00:03 Urine Bacteria Rare /hpf (NONE SEEN) 06/21/18 00:03 Urine Mucus Few 06/21/18 00:03 Alcohol, Quantitative < 3.0 mg/dL (0.0-5.0) 06/21/18 08:45 Influenza A (Rapid) Negative 06/21/18 02:07 Influenza B (Rapid) Negative 06/21/18 02:07 ecg: afib, vr 108, no ischemic changes ct chest: no chf, ascending aorta 4.3 cm echo 01/2018: nl lv/rv, nl rvsp, mod ar, mild tr a/p: 88 m hx htn, hld, pad s/ multiple le surgeries, here after fall. fall: -no indication of cardiac etiology, seems related to back pain -plans per pmd new onset afib: -seen on ecg here -pt already on coumadin for PAD, continue -continue low dose bb for rate control, monitor on tele -recent echo unremarkable htn: -cont current meds hld: -cont statin elevated trops: -borderline trop elevation, does to seem to be acs, cont to trend trops joellen: -improving with ivfs TAA: -ct shows ascnd aorta 4.3 cm. Cont bp control, outpt monitoring. pad: -no claudication -pt has been kept on coumadin by vascular due to multiple revascularizations, continue same
[2018-06-21] MEDS ORDERED: chlordiazePOXIDE HCL 25 MG CAPSULE PO SCH (13:00)
--- NOTE | 2018-06-21 17:44 | CON.NEURO ---
Consult - Alcohol/Substance Use Hx Alcohol Use: No - Smoking History Smoking history: Never smoked Have you smoked in the past 12 months: No Home Medications - Allergies Allergies/Adverse Reactions: Allergies Allergy/AdvReac Type Severity Reaction Status Date / Time No Known Allergies Allergy Verified 06/20/18 23:20 - Home Medications Home Medications: Ambulatory Orders Docusate Sodium [Colace] 100 mg PO DAILY #20 capsule 06/18/18 Tramadol HCl 50 mg PO Q6H #15 tablet MDD 200 mg 06/18/18 Cyclobenzaprine HCl [Flexeril 10 mg] 10 mg PO BID PRN 06/21/18 Warfarin Sodium [Coumadin] 2.5 mg PO DAILY 06/21/18 Physical Exam-Neuro Vital Signs: Vital Signs Temperature 98.6 F 06/21/18 16:16 Pulse Rate 112 H 06/21/18 16:16 Respiratory Rate 16 06/21/18 16:16 Blood Pressure 119/64 06/21/18 16:16 O2 Sat by Pulse Oximetry (%) 95 06/21/18 16:16 Labs: CBC, BMP 06/21/18 07:00 06/21/18 06:00 INR, PTT INR 1.69 (0.83-1.09) H 06/21/18 00:03 Assessment/Plan cc Possible Meningitis and Delirium HPI 88 year old male history of PAD, Back pain . He has fall at home and he was very nervous usually he would have tremor when he is stressed. There is no loc, and ct head adn ct c spine unremarkable. patient denies any headhace, high temp was 100.6. THere is no seizure like activity. His wbc is low 2.0. THere is no previous recent wbc is available to copare. Patient also found to have new onset atrial fibrillation and he was already on statin and coumadin.Patient was seen with family at bedside. PMH history fo HTN,HLD, DVT, Atrial fibrillation, Back pain , ? etoh use PAST SURGICAL HISTORY: Vascualar surgery on LE bilaterally x 7. Social History: Smoking: Former smoker quit 20 years ago Alcohol: Denied at first, then stated occasionally, then stated "drinks 1 glass of homemade wine everyday" Drugs: Denies Family History: Allergies No Known Allergies Allergy (Verified 06/20/18 23:20) HOME MEDICATIONS: Home Medications Medication Instructions Recorded Docusate Sodium [Colace] 100 mg PO DAILY #20 capsule 06/18/18 Tramadol HCl 50 mg PO Q6H #15 tablet MDD 200 mg 06/18/18 ROS reviewed in chart NEUROLOGICAL EXAMIANTION Alert oriented x 2, he knows his name , age and he says he is at [facility] and could not anme date , was able to tell it is june speech is normal as per family, able to follow command and comprehend eomi, pupils reactive, no fuad asymmetry moving all extremity sensation is noraml reflexx are generalized diminisehd there is neck muscle spasm, seems to be quite supple ct head is normal Assessment: 88 year old male history of HTN,HLD, DVT on coumadin and found to have atrial fibrillation ,low wbc and fever. He seems to be delirious and clinically unlikely to be meningitis. Id consult is awaited. Delirium could be due to intercurrent medical condition , back pain and hospitalization. PLAN: avoid anticholinergic medicaiton - ID consult and Hematology consult awaited - B12,foalte tsh can be obtained - would continue to follow with primary Thanking you so much Guillermo Roth MD
[2018-06-21 18:12] VITALS: BMI 27.3
--- NOTE | 2018-06-21 20:02 | PN ---
Progress Note (short form) - Note Progress Note: ID consult dictated imp/reccd 88 yo man with recent onset of back pain seen in ED on 06/18 and sent home on tramadol fell several more times at home and switched to flexeril had recurrent pain Monday night and fell agail came to ED where he had a low grade temp and leukopenia and thrombocytopenia given vanco/zosyn this morning got rocephin no more fevers but had an episode of shakes earlier today no cough no diarrhea has frequent urination at baseline eats well no travel no sick contacts etiology of fever/leukocytopenia/thrombocytopoenia unclear continue rocephin for possible sepsis f/u cultures repeat cbc with diff in am ?viral but unusual as he has no sorethroat or rash
--- NOTE | 2018-06-21 20:28 | PN ---
Teaching Attending Note Name of Resident: Hoda Castellanos ATTENDING PHYSICIAN STATEMENT I saw and evaluated the patient. I reviewed the resident's note and discussed the case with the resident. I agree with the resident's findings and plan as documented with exceptions below. SUBJECTIVE: Patient seen and examined. Shaking,family at bedside. reports lower back pain radiating down the groin.AAOx3 currently. Mental status better per family at bedside OBJECTIVE: Vital Signs Period Temp Pulse Resp BP Sys/Rinaldi Pulse Ox Last 24 Hr 98.2 F-100.9 F 69-122 16-20 101-154/48-90 94-98 Intake & Output 06/18/18 06/19/18 06/20/18 06/21/18 23:59 23:59 23:59 23:59 Weight 175 lb 175 lb General: lying in bed, shaking anxious, flushed, OX3 CVS:S1S2 irregular Chest;CTAB,no rales or wheezing Abdomen:Soft,NT,ND, positive bowel sounds Musculoskeletal: no point spinal tenderness,SLR10 degrees RLE,limited by pain, LLE upto 50 degrees, power bilateral feet 5/5, Right hip limited by pain, otherwise 5/5, Tremors,EOMI, PERRL,AAOX3,no pronator drift Home Medications Medication Instructions Recorded Docusate Sodium [Colace] 100 mg PO DAILY #20 capsule 06/18/18 Tramadol HCl 50 mg PO Q6H #15 tablet MDD 200 mg 06/18/18 Cyclobenzaprine HCl [Flexeril 10 10 mg PO BID PRN 06/21/18 mg] Warfarin Sodium [Coumadin] 2.5 mg PO DAILY 06/21/18 Active Medications Chlordiazepoxide HCl (Librium -) 25 mg PO Q6H PRN PRN Reason: WITHDRAWAL(CONT SUBST) Last Admin: 06/21/18 12:47 Dose: 25 mg Docusate Sodium (Colace -) 100 mg PO DAILY AVA Last Admin: 06/21/18 10:22 Dose: 100 mg Ceftriaxone Sodium 2 gm/ (Dextrose) 100 mls @ 200 mls/hr IVPB DAILY AVA; Protocol Metoprolol Tartrate (Lopressor -) 25 mg PO BID AVA Last Admin: 06/21/18 12:46 Dose: 25 mg Laboratory Results - last 24 hr 06/21/18 06/21/18 06/21/18 00:03 00:03 00:03 WBC 2.2 L RBC 4.33 Hgb 14.1 Hct 40.0 MCV 92.3 MCH 32.5 MCHC 35.2 RDW 14.0 Plt Count 88 L MPV 8.6 Absolute Neuts (auto) 1.7 Neutrophils % 78.1 Lymphocytes % 13.3 Monocytes % 7.5 Eosinophils % 0.8 Basophils % 0.3 Nucleated RBC % 0 PT with INR 20.10 H INR 1.69 H PTT (Actin FS) 31.5 VBG pH POC VBG pCO2 POC VBG pO2 VBG HCO3 VBG O2 Sat (Fadia) VBG Base Excess Sodium Potassium Chloride Carbon Dioxide Anion Gap BUN Creatinine Creat Clearance w eGFR Random Glucose Lactic Acid Calcium Phosphorus Magnesium Total Bilirubin AST ALT Alkaline Phosphatase Troponin I Total Protein Albumin Urine Color Yellow Urine Appearance Cloudy Urine pH 5.0 Ur Specific Harrison 1.019 Urine Protein 2+ H Urine Glucose (UA) Negative Urine Ketones Negative Urine Blood 2+ H Urine Nitrite Negative Urine Bilirubin Negative Urine Urobilinogen 2.0 Ur Leukocyte Esterase Negative Urine WBC (Auto) 1 Urine RBC (Auto) 6 Ur Epithelial Cells Rare Urine Bacteria Rare Urine Mucus Few Alcohol, Quantitative Influenza A (Rapid) Influenza B (Rapid) 06/21/18 06/21/18 06/21/18 00:03 00:03 00:03 WBC RBC Hgb Hct MCV MCH MCHC RDW Plt Count MPV Absolute Neuts (auto) Neutrophils % Lymphocytes % Monocytes % Eosinophils % Basophils % Nucleated RBC % PT with INR INR PTT (Actin FS) VBG pH 7.39 POC VBG pCO2 41.8 POC VBG pO2 25.0 L VBG HCO3 24.6 VBG O2 Sat (Fadia) 43.8 L VBG Base Excess 0 Sodium 135 L Potassium 3.3 L Chloride 103 Carbon Dioxide 25 Anion Gap 7 L BUN 38 H Creatinine 1.9 H Creat Clearance w eGFR 33.78 Random Glucose 148 H Lactic Acid 1.2 Calcium 8.2 L Phosphorus Magnesium Total Bilirubin 1.6 H AST 114 H ALT 43 Alkaline Phosphatase 53 Troponin I 0.08 H Total Protein 7.2 Albumin 3.5 Urine Color Urine Appearance Urine pH Ur Specific Harrison Urine Protein Urine Glucose (UA) Urine Ketones Urine Blood Urine Nitrite Urine Bilirubin Urine Urobilinogen Ur Leukocyte Esterase Urine WBC (Auto) Urine RBC (Auto) Ur Epithelial Cells Urine Bacteria Urine Mucus Alcohol, Quantitative Influenza A (Rapid) Influenza B (Rapid) 06/21/18 06/21/18 06/21/18 02:07 06:00 06:36 WBC RBC Hgb Hct MCV MCH MCHC RDW Plt Count MPV Absolute Neuts (auto) Neutrophils % Lymphocytes % Monocytes % Eosinophils % Basophils % Nucleated RBC % PT with INR INR PTT (Actin FS) VBG pH POC VBG pCO2 POC VBG pO2 VBG HCO3 VBG O2 Sat (Fadia) VBG Base Excess Sodium 139 Potassium 3.7 Chloride 108 H Carbon Dioxide 25 Anion Gap 6 L BUN 32 H Creatinine 1.7 H Creat Clearance w eGFR 38.41 Random Glucose 111 H Lactic Acid 1.0 Calcium 7.9 L Phosphorus 3.5 Magnesium 2.5 H Total Bilirubin 1.3 H AST 93 H ALT 36 Alkaline Phosphatase 50 Troponin I Total Protein 6.5 Albumin 3.1 L Urine Color Urine Appearance Urine pH Ur Specific Harrison Urine Protein Urine Glucose (UA) Urine Ketones Urine Blood Urine Nitrite Urine Bilirubin Urine Urobilinogen Ur Leukocyte Esterase Urine WBC (Auto) Urine RBC (Auto) Ur Epithelial Cells Urine Bacteria Urine Mucus Alcohol, Quantitative Influenza A (Rapid) Negative Influenza B (Rapid) Negative 06/21/18 06/21/18 07:00 08:45 WBC 2.2 L RBC 3.97 L Hgb 12.9 Hct 36.6 MCV 92.3 MCH 32.5 MCHC 35.2 RDW 13.9 Plt Count 83 L MPV 8.7 Absolute Neuts (auto) Neutrophils % Lymphocytes % Monocytes % Eosinophils % Basophils % Nucleated RBC % PT with INR INR PTT (Actin FS) VBG pH POC VBG pCO2 POC VBG pO2 VBG HCO3 VBG O2 Sat (Fadia) VBG Base Excess Sodium Potassium Chloride Carbon Dioxide Anion Gap BUN Creatinine Creat Clearance w eGFR Random Glucose Lactic Acid Calcium Phosphorus Magnesium Total Bilirubin AST ALT Alkaline Phosphatase Troponin I Total Protein Albumin Urine Color Urine Appearance Urine pH Ur Specific Harrison Urine Protein Urine Glucose (UA) Urine Ketones Urine Blood Urine Nitrite Urine Bilirubin Urine Urobilinogen Ur Leukocyte Esterase Urine WBC (Auto) Urine RBC (Auto) Ur Epithelial Cells Urine Bacteria Urine Mucus Alcohol, Quantitative < 3.0 Influenza A (Rapid) Influenza B (Rapid) Ct head/chest/A/P and abdominal US results reviewed EKG AFib ASSESSMENT AND PLAN: 88 yom with PMHx of PAD with multiple revascularisations per family, ?AFib, ? ETOH abuse (Denied by family), recently seen in ED with fall, s/p non concerning CT LS spine,sent home on tramadol/flexeril, was noted with confusion yesterday, found with fevers 100.9 in the ED -AMS, ?toxic metabolic encephalopathy, vs medication induced (Flexeril/tramadol) , vs infectious, (neg meningeal sings, low suspicion) -Fevers, ?Viral, r/o neurological process though low suspicion -Leucopenia/Thrombocytopenia ?etiology -Recent fall with low back pain -?ALEXANDRE VS CKD -?New onset atrial fibrillation Plan: Mental status improved. Ceftriaxone, follow up Blood cx. MRI brain/MRI LS spine Lidocaine patch, hold flexeril/tramadol for now. ID/Neurology/Cardiology input noted. Metoprolol added. Coumadin if no intervention planned in 24 hours Hematology consult. Retrieve prior labs including CBC, renal function and ?ETOH history from PCP. DVTPPX with SCDs given thrombocytopenia Dispo pending clinical improvement. Will need PT eval and CM consult. Plan discussed with patient and family at bedside in detail, all questions answered.
--- NOTE | 2018-06-21 23:30 | CONSULT ---
Consult - text type - Consultation Consultation Note: Patient seen and examined 88 y/o patient coes in with htn, hld, PVD, s/p utiple surgeries,fever, shaking chills. Had a fall at home. Has been having back pain lately and it was very bad and he was trying to get out of bed but pain made him fall. No prodrome sxs. No loc. No cp sob palps dizzy loc pnd orthopnea le edema. pmh: per hpi psh: le revascularizations/bypass social: ex tob fam: no premature cad ros: no nvd, cough had gib hematuria, gib, dysuria. +fever, +back pain. all others negative meds: Home Medications Medication Instructions Recorded Docusate Sodium [Colace] 100 mg PO DAILY #20 capsule 06/18/18 Tramadol HCl 50 mg PO Q6H #15 tablet MDD 200 mg 06/18/18 Cyclobenzaprine HCl [Flexeril 10 10 mg PO BID PRN 06/21/18 mg] Warfarin Sodium [Coumadin] 2.5 mg PO DAILY 06/21/18 pe: Vital Signs Period Temp Pulse Resp BP Sys/Rinaldi Pulse Ox Last 24 Hr 98.2 F-100.9 F 98-122 16-20 101-154/48-90 94-98 nad no jvd irreg s1s2 no mrg cta bl nl eff aaox3 no le e/c/c abd nt nd pos bs no jaundice diaphoresis Labs/Meeds reviewed A/P: 88 y/o patient comes in s/p fall, with ongoing rt. gluteal pain, fever/chills Low WBC/platelets --mild Most likely due to occult infection --w/u ongoing will check B12/folate/TSH/U/S liver/spleen/flow/cytogenetics/FISH to r/o other etiologies ? rheumatology consult discussed with Dr. Castellanos on 06/22/18
--- NOTE | 2018-06-21 23:51 | CONS ---
DATE OF CONSULTATION: DATE OF DICTATION: 06/21/2018 REQUESTED BY: Hospitalist Service This is an 88-year-old man who is admitted after he fell at home. He eventually, a couple of weeks ago, developed back pain. The family suspects it is secondary to shoveling snow. He was seen in the emergency room on the with complaints of fall again because of his back pain. His legs had given out. He had a lumbar CT at that time and was discharged on Ultram. He continued after discharge to fall at home. He fell several times. Family spoke with his primary doctor who then switched the Ultram to Flexeril. He had some improvement with the first dose of Flexeril, but the pain recurred that evening and he again fell and was brought to the emergency room. There is no history of any fevers. He has this pain in his right lower back. He denies any chest pain, headache, shortness of breath. He has no rash. He has no sore throat. He has not been coughing. Family reports he has a very good appetite. He lives at home with his . He has not had any sick contacts. There has been no travel. PAST MEDICAL HISTORY: Notable for hypertension, hyperlipidemia, DVT, back pain, and atrial fibrillation. He has a history of multiple vascular surgeries on his legs. The family reports 7 including what sounds like a bypass procedure. SOCIAL HISTORY: He is a former smoker, quit 20 years ago. He apparently has a glass of wine every day. He lives with his . [place] came [place]. He used to work construction. FAMILY HISTORY: Unremarkable. ALLERGIES: No known drug allergies. MEDICATIONS AT HOME: Include Colace, tramadol that was recently prescribed, warfarin, and the Flexeril that was just prescribed. REVIEW OF SYSTEMS: Besides the back pain, he denies any constipation. He has no dysuria. He has no sore throat. He has no rash. He has no cough. PHYSICAL EXAMINATION: Vital Signs: Temperature is 98.3, temperature max was 100.9, pulse of 69, respiratory rate 18, blood pressure 117/55. He is saturating 95% on room air. General: A pleasant, elderly man, in no acute distress. The family reports that he is at his baseline. HEENT: He is normocephalic. His eyes are anicteric. He has no thrush or pharyngitis. Neck: Supple. Lungs: Clear to auscultation. Heart: Regular rate and rhythm. Abdomen: Soft, nontender. He has no suprapubic or CVA tenderness. Back: He does have this right lumbosacral pain in his back. Extremities: Without any edema. LABORATORY: White count is 2.2, hemoglobin 12.9, platelets are 83,000, INR is 1.6. BUN is 32, creatinine 1.7 with a total bilirubin of 1.3, AST of 93. Urinalysis is negative for leukocyte esterase with 1 white cell. His influenza screen was negative. Urine and blood cultures are pending. He had an abdominal ultrasound that showed mild fatty liver, small stones, and some sludge in the gallbladder, without any evidence of cholecystitis. Splenomegaly and bilateral renal cysts. He had a head CT that showed moderate atrophy. No evidence of any focal intracranial lesion or hemorrhage. He had a CAT scan of his cervical spine that showed no fracture or subluxation. Multilevel degenerative disease was noted. He had a CAT scan of his chest, abdomen and pelvis that was notable for some dependent atelectasis. There was some dilatation of the root of the aorta. The liver was negative. The gallbladder had some small dependent gallstones. The pancreas was negative. He had mild splenomegaly and multiple renal cysts. There was no adenopathy. There was no evidence of bowel obstruction, no evidence of appendicitis. No diverticulitis. IN SUMMARY: This is an 88-year-old man admitted from home with: 1. Weakness, back pain bilaterally, leukopenia, and thrombocytopenia. He has no localizing symptoms, but the daughter does report he had an episode of shakes earlier today. There is no cough, no diarrhea. He has frequent urination at baseline. He has been eating well. No weight loss. There has been no travel or sick contacts. The etiology of his fever, leukocytosis, and thrombocytopenia is unclear. He received vancomycin and Zosyn last night and ceftriaxone this morning. I would continue ceftriaxone at present for possible sepsis. Will follow up cultures and repeat CBC with differential in the morning. Unusual for viral as he has no sore throat or rash or cough or anything to suggest a viral syndrome. 2. Secondly, severe low back pain, further workup is needed as the patient continues to remain quite symptomatic. 3. History of multiple vascular procedures. 4. Question of alcohol use. Further recommendations to follow. We will get a CBC and differential in the morning to further evaluate. RENETTA COATES M.D. [id number]
[2018-06-22 06:34] LABS: BASO % 0.6 % (0-2.0); EOS % 1.8 % (0-4.5); HEMATOCRIT 36.1 % (35.4-49); HEMOGLOBIN 12.6 GM/dL (11.7-16.9); LYMPH % 28.5 % (8-40); MCH 32.1 pg (25.7-33.7); MEAN CELL VOLUME 91.9 fl (80-96); MEAN PLT VOLUME 9.2 fl (7.5-11.1); MONO % 8.6 % (3.8-10.2); NEUT % 60.5 % (42.8-82.8); PLATELET COUNT 83 K/MM3 (134-434); RBC 3.93 M/mm3 (4.00-5.60); RDW 13.9 % (11.9-15.9); WHITE BLOOD COUNT 2.8 K/mm3 (4.0-10.0)
[2018-06-22 06:44] LABS: INR 2.35 (0.83-1.09)
[2018-06-22 07:51] LABS: ALBUMIN 2.9 g/dl (3.4-5.0); ALK PHOS 53 U/L (45-117); ANION GAP 5 MMOL/L (8-16); BILIRUBIN,TOTAL 0.8 mg/dL (0.2-1); BLOOD UREA NITROGEN 28 mg/dL (7-18); CALCIUM 7.9 mg/dL (8.5-10.1); CHLORIDE 109 mmol/L (98-107); CO2 26 mmol/L (21-32); CREATININE 1.5 mg/dL (0.55-1.3); GLUCOSE,RANDOM 79 mg/dL (74-106); MAGNESIUM 2.8 mg/dL (1.8-2.4); PHOSPHOROUS 2.6 mg/dL (2.5-4.9); POTASSIUM 3.6 mmol/L (3.5-5.1); SGOT/AST 78 U/L (15-37); SGPT/ALT 38 U/L (13-61); SODIUM 140 mmol/L (136-145); TOT PROT 6.5 g/dl (6.4-8.2)
[2018-06-22] MEDS ORDERED: DEXTROSE 5%-WATER 100 ML IVPB ONE (09:12)
[2018-06-22] MEDS: DOCUSATE SODIUM 100 MG CAPSULE (FP) PO SCH (09:22)
--- NOTE | 2018-06-22 09:33 | PN ---
Progress Note (short form) - Note Progress Note: 88 year old male history of PAD, Back pain . He has fall at home and he was very nervous usually he would have tremor when he is stressed. There is no loc, and ct head adn ct c spine unremarkable. patient denies any headhace, high temp was 100.6. THere is no seizure like activity. His wbc is low 2.0. THere is no previous recent wbc is available to copare. Patient also found to have new onset atrial fibrillation and he was already on statin and coumadin.Patient was seen with family at bedside. ID note and Molder Setter note reviewed. he is complaining of back pain and it shoots down to right leg. NEUROLOGICAL EXAMIANTION Alert oriented x 2, he knows his name , age , he know he is at [facility] and he was able to tell this is june 2018, as per nursing he was confused speech is normal a eomi, pupils reactive, no fuad asymmetry moving all extremity sensation is noraml reflexx are generalized diminisehd there is neck muscle spasm, seems to be quite supple ct head is normal Assessment: 88 year old male history of HTN,HLD, DVT on coumadin and found to have atrial fibrillation ,low wbc and fever. Lashawn explanation of his condition is Delrium secondray to medical condition and unlikley to be meningitis 2. Back pain seems to be secondary to spinal stenosis and had ct of L spine, Suggest to do PT and take nsaid prn 3. He did have history of tremors , likle to be essential tremors, not active issue right now PLAN: avoid anticholinergic medicaiton - agree with mri of brain - B12,foalte tsh were normal - would continue to follow with primary Thanking you so much Guillermo Roth MD
[2018-06-22] MEDS: METOPROLOL TARTRATE 25 MG TABLET (FP) PO SCH ×2 (09:55→21:06)
[2018-06-22] MEDS ORDERED: CEFTRIAXONE 2 GM in DEXTROSE 5%-WATER 100 ML IVPB SCH (10:00)
--- NOTE | 2018-06-22 10:15 | ECHO ---
Name: ROCIO LAI Exam:Adult Echocardiogram Study Date: 06/22/2018 08:36 AM Age: 88 yrs Reason For Study: a fib ovd Height: 67 in Weight: 175 lb BSA: 1.9 m2 MMode/2D Measurements & Calculations IVSd: 1.2 cm Ao root diam: 3.2 cm LVIDd: 4.0 cm LA dimension: 3.7 cm LVIDs: 2.9 cm LVPWd: 1.3 cm LVPWs: 1.7 cm EDV(Teich): 71.4 ml ESV(Teich): 32.1 ml LVOT diam: 2.1 cm RV S Marlo: 19.3 cm/sec Doppler Measurements & Calculations MV E max marlo: 80.0 cm/sec Ao V2 max: 214.3 cm/sec MV A max marlo: 56.8 cm/sec Ao max P.4 mmHg MV E/A: 1.4 Ao V2 mean: 150.1 cm/sec MV dec time: 0.20 sec Ao mean P.3 mmHg Ao V2 VTI: 48.6 cm GENNY(I,D): 1.9 cm2 AI P1/2t: 508.6 msec GENNY(V,D): 1.8 cm2 AI max marlo: 368.1 cm/sec LV V1 max P.8 mmHg AI max P.3 mmHg LV V1 mean P.9 mmHg AI dec slope: 212.0 cm/sec2 LV V1 max: 109.6 cm/sec LV V1 mean: 82.5 cm/sec LV V1 VTI: 25.6 cm SV(LVOT): 90.6 ml TR max marlo: 289.0 cm/sec TR max P.4 mmHg PA V2 max: 93.8 cm/sec Med Peak E' Marlo: 7.0 cm/sec PA max P.5 mmHg Med E/e': 11.5 Lat Peak E' Marlo: 7.7 cm/sec Lat E/e': 10.4 Left Ventricle Left ventricular systolic function is normal. Ejection Fraction = 55-60%. Right Ventricle The right ventricle is normal in size and function. Atria The left atrium is borderline dilated. The interatrial septum is intact with no evidence for an atria l septal defect. Mitral Valve There is mild mitral annular calcification. There is no mitral valve stenosis. There is mild mitral regurgitation. Tricuspid Valve The tricuspid valve is normal in structure and function. There is mild tricuspid regurgitation. Aortic Valve There is moderate aortic sclerosis.;. No hemodynamically significant valvular aortic stenosis. Mild a ortic regurgitation. Pulmonic Valve The pulmonic valve is not well seen, but is grossly normal. There is no pulmonic valvular stenosis. Great Vessels The aortic root is normal size. Pericardium/Pleura There is no pericardial effusion. Interpretation Summary Left ventricular systolic function is normal. Ejection Fraction = 55-60%. The right ventricle is normal in size and function. There is mild mitral annular calcification. There is mild mitral regurgitation. There is mild tricuspid regurgitation. Mild aortic regurgitation. There is no pericardial effusion. MD Turpin *Dayo 06/22/2018 10:15 AM
--- NOTE | 2018-06-22 10:23 | PN ---
Progress Note (short form) - Note Progress Note: pe: Vital Signs Period Temp Pulse Resp BP Sys/Rinaldi Pulse Ox Last 24 Hr 98.2 F-100.9 F 98-122 16-20 101-154/48-90 94-98 nad no jvd irreg s1s2 no mrg cta bl nl eff aaox3 no le e/c/c abd nt nd pos bs no jaundice diaphoresis pos dp pt no carotid bruits Laboratory Last Values WBC 2.2 K/mm3 (4.0-10.0) L 06/21/18 07:00 RBC 3.97 M/mm3 (4.00-5.60) L 06/21/18 07:00 Hgb 12.9 GM/dL (11.7-16.9) 06/21/18 07:00 Hct 36.6 % (35.4-49) 06/21/18 07:00 MCV 92.3 fl (80-96) 06/21/18 07:00 MCH 32.5 pg (25.7-33.7) 06/21/18 07:00 MCHC 35.2 g/dl (32.0-35.9) 06/21/18 07:00 RDW 13.9 % (11.9-15.9) 06/21/18 07:00 Plt Count 83 K/MM3 (134-434) L 06/21/18 07:00 MPV 8.7 fl (7.5-11.1) 06/21/18 07:00 Absolute Neuts (auto) 1.7 K/mm3 (1.5-8.0) 06/21/18 00:03 Neutrophils % 78.1 % (42.8-82.8) 06/21/18 00:03 Lymphocytes % 13.3 % (8-40) 06/21/18 00:03 Monocytes % 7.5 % (3.8-10.2) 06/21/18 00:03 Eosinophils % 0.8 % (0-4.5) 06/21/18 00:03 Basophils % 0.3 % (0-2.0) 06/21/18 00:03 Nucleated RBC % 0 % (0-0) 06/21/18 00:03 PT with INR 20.10 SEC (9.7-13.0) H 06/21/18 00:03 INR 1.69 (0.83-1.09) H 06/21/18 00:03 PTT (Actin FS) 31.5 SECONDS (25.2-36.5) 06/21/18 00:03 VBG pH 7.39 (7.31-7.41) 06/21/18 00:03 POC VBG pCO2 41.8 mmHg (41-51) 06/21/18 00:03 POC VBG pO2 25.0 mmHg (30-40) L 06/21/18 00:03 VBG HCO3 24.6 mmol/L (23-29) 06/21/18 00:03 VBG O2 Sat (Fadia) 43.8 % (70-80) L 06/21/18 00:03 VBG Base Excess 0 meq/l (-2-2) 06/21/18 00:03 Sodium 139 mmol/L (136-145) 06/21/18 06:00 Potassium 3.7 mmol/L (3.5-5.1) 06/21/18 06:00 Chloride 108 mmol/L (98-107) H 06/21/18 06:00 Carbon Dioxide 25 mmol/L (21-32) 06/21/18 06:00 Anion Gap 6 MMOL/L (8-16) L 06/21/18 06:00 BUN 32 mg/dL (7-18) H 06/21/18 06:00 Creatinine 1.7 mg/dL (0.55-1.3) H 06/21/18 06:00 Creat Clearance w eGFR 38.41 (>60) 06/21/18 06:00 Random Glucose 111 mg/dL (74-106) H 06/21/18 06:00 Lactic Acid 1.0 mmol/L (0.4-2.0) 06/21/18 06:36 Calcium 7.9 mg/dL (8.5-10.1) L 06/21/18 06:00 Phosphorus 3.5 mg/dL (2.5-4.9) 06/21/18 06:00 Magnesium 2.5 mg/dL (1.8-2.4) H 06/21/18 06:00 Total Bilirubin 1.3 mg/dL (0.2-1) H 06/21/18 06:00 AST 93 U/L (15-37) H 06/21/18 06:00 ALT 36 U/L (13-61) 06/21/18 06:00 Alkaline Phosphatase 50 U/L (45-117) 06/21/18 06:00 Troponin I 0.08 ng/ml (0.00-0.05) H 06/21/18 00:03 Total Protein 6.5 g/dl (6.4-8.2) 06/21/18 06:00 Albumin 3.1 g/dl (3.4-5.0) L 06/21/18 06:00 Urine Color Yellow 06/21/18 00:03 Urine Appearance Cloudy 06/21/18 00:03 Urine pH 5.0 (5.0-8.0) 06/21/18 00:03 Ur Specific [place] 1.019 (1.010-1.035) 06/21/18 00:03 Urine Protein 2+ (NEGATIVE) H 06/21/18 00:03 Urine Glucose (UA) Negative (NEGATIVE) 06/21/18 00:03 Urine Ketones Negative (NEGATIVE) 06/21/18 00:03 Urine Blood 2+ (NEGATIVE) H 06/21/18 00:03 Urine Nitrite Negative (NEGATIVE) 06/21/18 00:03 Urine Bilirubin Negative (<2.0 mg/dL) 06/21/18 00:03 Urine Urobilinogen 2.0 mg/dL (0.2-1.0) 06/21/18 00:03 Ur Leukocyte Esterase Negative (NEGATIVE) 06/21/18 00:03 Urine WBC (Auto) 1 /hpf (3-5) 06/21/18 00:03 Urine RBC (Auto) 6 /hpf (0-3) 06/21/18 00:03 Ur Epithelial Cells Rare /HPF (FEW) 06/21/18 00:03 Urine Bacteria Rare /hpf (NONE SEEN) 06/21/18 00:03 Urine Mucus Few 06/21/18 00:03 Alcohol, Quantitative < 3.0 mg/dL (0.0-5.0) 06/21/18 08:45 Influenza A (Rapid) Negative 06/21/18 02:07 Influenza B (Rapid) Negative 06/21/18 02:07 ecg: afib, vr 108, no ischemic changes ct chest: no chf, ascending aorta 4.3 cm echo 01/2018: nl lv/rv, nl rvsp, mod ar, mild tr echo 06/2018: nl lv/rv, mild mr/tr/ar tele: sr a/p: 88 m hx htn, hld, pad s/ multiple le surgeries, here after fall. fall, fever, back pain: -no indication of cardiac etiology, seems related to back pain -plans per pmd, neuro, ID new onset afib: -seen on ecg here initially, now in SR -pt already on coumadin for PAD, continue -continue low dose bb for rate control, monitor on tele -echo unremarkable htn: -cont current meds hld: -cont statin elevated trops: -borderline trop elevation with flat trend, does to seem to be acs joellen: -improving with ivfs TAA: -ct shows ascnd aorta 4.3 cm. Cont bp control, outpt monitoring. pad: -no claudication -pt has been kept on coumadin by vascular due to multiple revascularizations, continue same
--- NOTE | 2018-06-22 11:41 | PN ---
Teaching Attending Note Name of Resident: Hoda Castellanos ATTENDING PHYSICIAN STATEMENT I saw and evaluated the patient. I reviewed the resident's note and discussed the case with the resident. I agree with the resident's findings and plan as documented with exceptions below. SUBJECTIVE: Patient seen and examined. Awake, Ox3, denies any back pain currently. No pain, dyspnea, chest pain, palpitations or new concerns. OBJECTIVE: Vital Signs Period Temp Pulse Resp BP Sys/Rinaldi Pulse Ox Last 24 Hr 97.3 F-98.6 F 55-122 16-20 112-135/48-67 93-96 Intake & Output 06/19/18 06/20/18 06/21/18 06/22/18 23:59 23:59 23:59 23:59 Intake Total 120 Output Total 400 Balance 120 -400 Weight 175 lb 175 lb General: sitting in bed, comfortable, no acute distress Chest: CTAB, no rales or wheezing Abdomen:Soft, NT, ND, positive bowel sounds Extremities: no edema Musculoskeletal: no point spinal tenderness, SLR RLE 20 degrees, LLE unchanged Neuro: AAOx3, facial symmetry, no tremors, otherwise unchanged exam Home Medications Medication Instructions Recorded Docusate Sodium [Colace] 100 mg PO DAILY #20 capsule 06/18/18 Tramadol HCl 50 mg PO Q6H #15 tablet MDD 200 mg 06/18/18 Cyclobenzaprine HCl [Flexeril 10 10 mg PO BID PRN 06/21/18 mg] Warfarin Sodium [Coumadin] 2.5 mg PO DAILY 06/21/18 Active Medications Chlordiazepoxide HCl (Librium -) 25 mg PO Q6H PRN PRN Reason: WITHDRAWAL(CONT SUBST) Last Admin: 06/21/18 12:47 Dose: 25 mg Docusate Sodium (Colace -) 100 mg PO DAILY [facility] Last Admin: 06/22/18 09:22 Dose: 100 mg Ceftriaxone Sodium 2 gm/ (Dextrose) 100 mls @ 200 mls/hr IVPB DAILY [facility]; Protocol Last Admin: 06/22/18 09:30 Dose: 200 mls/hr Metoprolol Tartrate (Lopressor -) 12.5 mg PO BID [facility] Last Admin: 06/22/18 09:55 Dose: 12.5 mg Warfarin Sodium (Coumadin -) 2.5 mg PO DAILY@1800 [facility] Laboratory Results - last 24 hr 06/21/18 06/22/18 06/22/18 08:45 05:30 05:30 WBC RBC Hgb Hct MCV MCH MCHC RDW Plt Count MPV Absolute Neuts (auto) Neutrophils % Lymphocytes % Monocytes % Eosinophils % Basophils % Nucleated RBC % ESR PT with INR INR Sodium Potassium Chloride Carbon Dioxide Anion Gap BUN Creatinine Creat Clearance w eGFR Random Glucose Calcium Phosphorus Magnesium Total Bilirubin GGT AST ALT Alkaline Phosphatase Creatine Kinase Creatine Kinase Index CK-MB (CK-2) Troponin I C-Reactive Protein 11.6 H Total Protein Albumin Vitamin B12 455 Serum Folate 9 TSH 0.83 HIV Genotype Non reactive 06/22/18 06/22/18 06/22/18 05:30 05:30 05:30 WBC 2.8 L RBC 3.93 L Hgb 12.6 Hct 36.1 MCV 91.9 MCH 32.1 MCHC 35.0 RDW 13.9 Plt Count 83 L MPV 9.2 Absolute Neuts (auto) 1.7 Neutrophils % 60.5 D Lymphocytes % 28.5 D Monocytes % 8.6 Eosinophils % 1.8 D Basophils % 0.6 Nucleated RBC % 0 ESR PT with INR INR Sodium 140 Potassium 3.6 Chloride 109 H Carbon Dioxide 26 Anion Gap 5 L BUN 28 H Creatinine 1.5 H Creat Clearance w eGFR 44.37 Random Glucose 79 Calcium 7.9 L Phosphorus 2.6 Magnesium 2.8 H Total Bilirubin 0.8 GGT 39 AST 78 H ALT 38 Alkaline Phosphatase 53 Creatine Kinase 1074 H Creatine Kinase Index 0.4 CK-MB (CK-2) 4.8 H Troponin I 0.04 C-Reactive Protein Total Protein 6.5 Albumin 2.9 L Vitamin B12 Serum Folate TSH HIV Genotype 06/22/18 06/22/18 05:30 06:00 WBC RBC Hgb Hct MCV MCH MCHC RDW Plt Count MPV Absolute Neuts (auto) Neutrophils % Lymphocytes % Monocytes % Eosinophils % Basophils % Nucleated RBC % ESR 82 H PT with INR 28.00 H INR 2.35 H Sodium Potassium Chloride Carbon Dioxide Anion Gap BUN Creatinine Creat Clearance w eGFR Random Glucose Calcium Phosphorus Magnesium Total Bilirubin GGT AST ALT Alkaline Phosphatase Creatine Kinase Creatine Kinase Index CK-MB (CK-2) Troponin I C-Reactive Protein Total Protein Albumin Vitamin B12 Serum Folate TSH HIV Genotype Microbiology 06/21/18 00:03 Urine - Urine Clean Catch Urine Culture - Final 06/21/18 00:03 Blood - Peripheral Venous Blood Culture - Preliminary NO GROWTH OBTAINED AFTER 24 HOURS, INCUBATION TO CONTINUE FOR 4 DAYS. 06/21/18 00:10 Blood - Peripheral Venous Blood Culture - Preliminary NO GROWTH OBTAINED AFTER 24 HOURS, INCUBATION TO CONTINUE FOR 4 DAYS. 2D echo results reviewed ASSESSMENT AND PLAN: 88 yom with PMHx of PAD with multiple revascularisations per family, ?AFib, ? 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 Ceftriaxone day 2, Blood cx neg so far. ID input noted. MRI brain/MRI LS spine as able. Lidocaine patch, hold flexeril/tramadol for now. ID/Neurology/Cardiology input noted. Metoprolol added. 2D echo reviewed. Resume coumadin. Hematology input noted. Discussed with Dr. Elizondo, patient with normal CBC and Cr 1.2 in 03/2018. Also no concerns of ETOH use. DVTPPX resume coumadin. Dispo PT eval, may need SNF given recent fall and back symptoms. Plan discussed with patient, nursing and PCP.
[2018-06-22] MEDS ORDERED: chlordiazePOXIDE 5 MG CAPSULE PO SCH (13:00)
--- NOTE | 2018-06-22 14:17 | PN ---
Physical Exam: SUBJECTIVE: Patient seen and examined; c/o of back [pain and right hip pain; eating fruit brought in from home;did; OBJECTIVE: Vital Signs Period Temp Pulse Resp BP Sys/Rinaldi Pulse Ox Last 24 Hr 97.3 F-98.6 F 55-112 16-20 112-123/48-64 93-96 GENERAL: The patient is awake, alert, and fully oriented, in pain NECK: Trachea midline, full range of motion, supple. LUNGS: ctab HEART: Regular rate and rhythm, S1, S2 without murmur, rub or gallop. ABDOMEN: Soft, nontender, nondistended, normoactive bowel sounds, no guarding, no rebound, no hepatosplenomegaly, no masses. EXTREMITIES: 2+ pulses, warm, well-perfused, no edema. NEUROLOGICAL: Cranial nerves II through XII grossly intact. Normal speech, gait not observed. SKIN: area on ecchymosos right hip Laboratory Results - last 24 hr 06/21/18 06/22/18 06/22/18 08:45 05:30 05:30 WBC RBC Hgb Hct MCV MCH MCHC RDW Plt Count MPV Absolute Neuts (auto) Neutrophils % Lymphocytes % Monocytes % Eosinophils % Basophils % Nucleated RBC % ESR PT with INR INR Sodium Potassium Chloride Carbon Dioxide Anion Gap BUN Creatinine Creat Clearance w eGFR Random Glucose Calcium Phosphorus Magnesium Total Bilirubin GGT AST ALT Alkaline Phosphatase Creatine Kinase Creatine Kinase Index CK-MB (CK-2) Troponin I C-Reactive Protein 11.6 H Total Protein Albumin Vitamin B12 455 Serum Folate 9 TSH 0.83 HIV Genotype Non reactive 06/22/18 06/22/18 06/22/18 05:30 05:30 05:30 WBC 2.8 L RBC 3.93 L Hgb 12.6 Hct 36.1 MCV 91.9 MCH 32.1 MCHC 35.0 RDW 13.9 Plt Count 83 L MPV 9.2 Absolute Neuts (auto) 1.7 Neutrophils % 60.5 D Lymphocytes % 28.5 D Monocytes % 8.6 Eosinophils % 1.8 D Basophils % 0.6 Nucleated RBC % 0 ESR PT with INR INR Sodium 140 Potassium 3.6 Chloride 109 H Carbon Dioxide 26 Anion Gap 5 L BUN 28 H Creatinine 1.5 H Creat Clearance w eGFR 44.37 Random Glucose 79 Calcium 7.9 L Phosphorus 2.6 Magnesium 2.8 H Total Bilirubin 0.8 GGT 39 AST 78 H ALT 38 Alkaline Phosphatase 53 Creatine Kinase 1074 H Creatine Kinase Index 0.4 CK-MB (CK-2) 4.8 H Troponin I 0.04 C-Reactive Protein Total Protein 6.5 Albumin 2.9 L Vitamin B12 Serum Folate TSH HIV Genotype 06/22/18 06/22/18 05:30 06:00 WBC RBC Hgb Hct MCV MCH MCHC RDW Plt Count MPV Absolute Neuts (auto) Neutrophils % Lymphocytes % Monocytes % Eosinophils % Basophils % Nucleated RBC % ESR 82 H PT with INR 28.00 H INR 2.35 H Sodium Potassium Chloride Carbon Dioxide Anion Gap BUN Creatinine Creat Clearance w eGFR Random Glucose Calcium Phosphorus Magnesium Total Bilirubin GGT AST ALT Alkaline Phosphatase Creatine Kinase Creatine Kinase Index CK-MB (CK-2) Troponin I C-Reactive Protein Total Protein Albumin Vitamin B12 Serum Folate TSH HIV Genotype Active Medications Generic Name Dose Route Start Last Admin Trade Name Freq PRN Reason Stop Dose Admin Chlordiazepoxide HCl 25 mg 06/21/18 12:23 06/21/18 12:47 Librium - PO 25 mg Q6H PRN Administration WITHDRAWAL(CONT SUBST) Docusate Sodium 100 mg 06/21/18 10:00 06/22/18 09:22 Colace - PO 100 mg DAILY [facility] Administration Ceftriaxone Sodium 2 gm/ 100 mls @ 200 mls/hr 06/22/18 10:00 06/22/18 09:30 Dextrose IVPB 200 mls/hr DAILY [facility] Administration Protocol Metoprolol Tartrate 12.5 mg 06/22/18 09:19 06/22/18 09:55 Lopressor - PO 12.5 mg BID [facility] Administration Warfarin Sodium 2.5 mg 06/22/18 18:00 Coumadin - PO DAILY@1800 [facility] ASSESSMENT/PLAN: This is 88 year old male with a history of severe peripheral vascular disease, dvt on warfarin, HTN, HLD, multiple recent falls who presents after another fall at home. Presented in pain with low grade fever, leukopenia and thrombocytopenia. #AMS w -Brain MRI negative for acute pathology; +gliosis and dilation of ventricles -ams most likely due to acute delirium in the setting of viral illness #Thombocytopenia/leukopenia: -leukopenia possible secondary to infection;vs hematologic disorder -thrombocytopenia b12 , folate, tsh, were wnl -abdominal US +splenomegaly with small amt of free fluid -MCV elevated; flow, fish, cytogenetics for MDS w/u -due to back pain, urine proteins +; albumin to globulin ratio <1 with leukopenia; will order SPEP for dysproteinemia w/u -arelis heme/onc recs #new onset paroxysmal afib; -rate control metoprolol 12.5 bid -coumadin 2.5mg po hs -monitor inr -echo normal ef; -cardio on board #Fall: -CT HEAD,NECK , ABD, PELVIS without acute abnormalities. -pain control; lidocaine patch -PT -MRI lumbar and thoracic disc dissec; #enlarged prostate seen on pelvi US; with post void residual increased #rhabdomyolysis: -IVF; monitor Ck #ALEXANDRE -improved ; etiologyl; rhabdo; dehydration #PVD; hxt DVT: warfarin -INR therapeutic #Thoracic Aortic Aneurysm : -ct shows ascnd aorta 4.3 cm -outpt f/u #HTN: -norvas at home; -will hold due to to low bp #HLD: -statin VTE: cont warfarin GI: na Visit type - Emergency Visit Emergency Visit: Yes ED Registration Date: 06/21/18 Care time: The patient presented to the Emergency Department on the above date and was hospitalized for further evaluation of their emergent condition. - New Patient This patient is new to me today: No - Critical Care Critical Care patient: No
[2018-06-22] MEDS ORDERED: SODIUM CHLORIDE 1,000 ML IV SCH (14:30)
[2018-06-22] MEDS: LIDOCAINE 5% TOPICAL PATCH TP SCH (15:38)
[2018-06-22] MEDS ORDERED: WARFARIN NA 2.5 MG TABLET (FP) PO SCH (18:00)
--- NOTE | 2018-06-22 20:41 | PN ---
Progress Note (short form) - Note Progress Note: doing well no further fever or chills alert Vital Signs Period Temp Pulse Resp BP Sys/Rinaldi Pulse Ox Last 24 Hr 97.3 F-98.6 F 56-71 20-20 114-146/48-63 93-96 cor-rrr lungs clear abd soft,nt ext no edema CBC, BMP 06/22/18 05:30 06/22/18 05:30 Microbiology 06/21/18 00:03 Urine - Urine Clean Catch Urine Culture - Final 06/21/18 00:03 Blood - Peripheral Venous Blood Culture - Preliminary NO GROWTH OBTAINED AFTER 24 HOURS, INCUBATION TO CONTINUE FOR 4 DAYS. 06/21/18 00:10 Blood - Peripheral Venous Blood Culture - Preliminary NO GROWTH OBTAINED AFTER 24 HOURS, INCUBATION TO CONTINUE FOR 4 DAYS. hiv negative a/p clinicallly improved , wbc improved etiology of fever/leukopenia/thrombocytopoenia unclear continue rocephin for possible sepsis f/u cultures repeat cbc with diff in am d/c rocephin in am if blood cultures are negative at 48hours all the imaging to date has been negative for infection d/w family at bedside
[2018-06-22] MEDS ORDERED: LIDOCAINE PATCH REMOVAL MC SCH (22:00)
[2018-06-22 22:23] LABS: COCAINE, UR NEGATIVE ng/ml (CUTOFF=300); METHADONE, UR NEGATIVE ng/ml (CUTOFF=300); OPIATES, URI NEGATIVE ng/ml (CUTOFF=300); PHENCYCLIDINE,URINE NEGATIVE ng/ml (CUTOFF=25); URINE AMPHETAMINES NEGATIVE ng/ml (CUTOFF=500); URINE BARBITURATES NEGATIVE ng/ml (CUTOFF=200)
[2018-06-22 22:46] LABS: URINE BENZODIAZEPINES POSITIVE ng/ml (CUTOFF=200)
[2018-06-23 06:51] LABS: BASO % 0.7 % (0-2.0); EOS % 2.7 % (0-4.5); HEMATOCRIT 32.8 % (35.4-49); HEMOGLOBIN 11.6 GM/dL (11.7-16.9); LYMPH % 27.3 % (8-40); MCH 32.6 pg (25.7-33.7); MCHC 35.5 g/dl (32.0-35.9); MEAN CELL VOLUME 91.8 fl (80-96); MONO % 8.7 % (3.8-10.2); NEUT % 60.6 % (42.8-82.8); PLATELET COUNT 85 K/MM3 (134-434); RBC 3.57 M/mm3 (4.00-5.60); RDW 13.9 % (11.9-15.9); WHITE BLOOD COUNT 2.3 K/mm3 (4.0-10.0)
[2018-06-23 07:02] LABS: INR 2.83 (0.83-1.09); PROTHROMBIN TIME (PATIENT) 33.8 SEC (9.7-13.0)
[2018-06-23 07:32] LABS: ALBUMIN 2.6 g/dl (3.4-5.0); ALK PHOS 57 U/L (45-117); ANION GAP 8 MMOL/L (8-16); BILIRUBIN,TOTAL 0.8 mg/dL (0.2-1); BLOOD UREA NITROGEN 24 mg/dL (7-18); CALCIUM 7.6 mg/dL (8.5-10.1); CHLORIDE 110 mmol/L (98-107); CO2 24 mmol/L (21-32); CREATININE 1.3 mg/dL (0.55-1.3); GLUCOSE,RANDOM 93 mg/dL (74-106); LDH 376 U/L (87-246); MAGNESIUM 2.2 mg/dL (1.8-2.4); POTASSIUM 3.5 mmol/L (3.5-5.1); SGOT/AST 52 U/L (15-37); SGPT/ALT 29 U/L (13-61); SODIUM 142 mmol/L (136-145); TOT PROT 5.8 g/dl (6.4-8.2)
--- NOTE | 2018-06-23 08:36 | PN ---
Progress Note, Physician Chief Complaint: back pain History of Present Illness: denies cp, sob. denies palp, syncope - Current Medication List Current Medications: Active Medications Docusate Sodium (Colace -) 100 mg PO DAILY [facility] Last Admin: 06/22/18 09:22 Dose: 100 mg Ceftriaxone Sodium 2 gm/ (Dextrose) 100 mls @ 200 mls/hr IVPB DAILY [facility]; Protocol Last Admin: 06/22/18 09:30 Dose: 200 mls/hr Sodium Chloride (Normal Saline -) 1,000 mls @ 100 mls/hr IV ASDIR [facility] Last Admin: 06/22/18 15:34 Dose: 100 mls/hr Lidocaine (Lidoderm Patch -) 1 patch TP DAILY [facility] Last Admin: 06/22/18 15:38 Dose: 1 patch Metoprolol Tartrate (Lopressor -) 12.5 mg PO BID [facility] Last Admin: 06/22/18 21:06 Dose: 12.5 mg Miscellaneous (Lidoderm Patch Removal) 1 each MC DAILY@2200 [facility] Last Admin: 06/22/18 21:06 Dose: 1 each Warfarin Sodium (Coumadin -) 2.5 mg PO DAILY@1800 [facility] Last Admin: 06/22/18 17:30 Dose: 2.5 mg - Objective Vital Signs: Vital Signs Temperature 98.8 F 06/23/18 06:00 Pulse Rate 59 L 06/23/18 06:00 Respiratory Rate 18 06/23/18 06:00 Blood Pressure 110/53 L 06/23/18 06:00 O2 Sat by Pulse Oximetry (%) 96 06/22/18 20:12 Constitutional: Yes: Well Nourished, No Distress, Calm Cardiovascular: Yes: Regular Rate and Rhythm, S1, S2. No: Gallop, Murmur Respiratory: Yes: Regular, CTA Bilaterally. No: Accessory Muscle Use, Rales, Wheezes Extremities: No: Cold Edema: No Neurological: Yes: Alert, Oriented Psychiatric: No: Agitated Labs: CBC, BMP 06/23/18 06:15 06/23/18 06:15 INR, PTT INR 2.83 (0.83-1.09) H 06/23/18 06:15 Assessment/Plan ecg: afib, vr 108, no ischemic changes ct chest: no chf, ascending aorta 4.3 cm echo 01/2018: nl lv/rv, nl rvsp, mod ar, mild tr echo 06/2018: nl lv/rv, mild mr/tr/ar tele: sr a/p: 88 m hx htn, hld, pad s/ multiple le surgeries, here after fall. fall, fever, back pain: -no indication of cardiac etiology, seems related to back pain -plans per pmd, neuro, ID new onset afib: -seen on ecg here initially, remains in SR currently -pt already on coumadin for PAD, continue same -continue low dose bb for rate control -echo unremarkable -outpt monitoring including of hgb and PLTs--pt advised to make f/u with sin (his office cardio) in 3-4 wks after discharge pancytopenia: -per hospitalist -PLTs 80sK, Hgb 11--ok for AC for now, monitor trends joellen: -creat 1.9 in ER, baseline unknown -improving with ivfs (1.3) htn: -cont current meds hld: -cont statin elevated trops: -borderline trop elevation with flat trend, does to seem to be acs TAA: -ct shows ascnd aorta 4.3 cm. Cont bp control, outpt monitoring. pad: -no claudication -pt has been kept on coumadin by vascular due to multiple revascularizations, continue same no further inpatient CV workup/tx indicated
--- NOTE | 2018-06-23 08:55 | PN ---
Progress Note (short form) - Note Progress Note: doing well ate breakfast wants to go home Vital Signs Period Temp Pulse Resp BP Sys/Rinaldi Pulse Ox Last 24 Hr 97.5 F-98.9 F 59-71 18-20 110-146/53-92 93-96 cor-rrr llungs decreased bs at bases abd soft,nt ext no edema CBC, BMP 06/23/18 06:15 06/23/18 06:15 Microbiology 06/21/18 00:03 Blood - Peripheral Venous Blood Culture - Preliminary NO GROWTH OBTAINED AFTER 48 HOURS, INCUBATION TO CONTINUE FOR 3 DAYS. 06/21/18 00:10 Blood - Peripheral Venous Blood Culture - Preliminary NO GROWTH OBTAINED AFTER 48 HOURS, INCUBATION TO CONTINUE FOR 3 DAYS. 06/21/18 00:03 Urine - Urine Clean Catch Urine Culture - Final a/p can d/c antibiotics persistent leukopenia and thrombocytopenia- flow pending back pain-management per neurology, family requesting muscle relaxant please call back if needed should f/u with hematology if leukopenia and thrombocytopenia persist as an outpt
--- NOTE | 2018-06-23 10:07 | PN ---
Progress Note (short form) - Note Progress Note: 88 year old male history of PAD, Back pain . He has fall at home and he was very nervous usually he would have tremor when he is stressed. There is no loc, and ct head adn ct c spine unremarkable. patient denies any headhace, high temp was 100.6. THere is no seizure like activity. His wbc is low 2.0. THere is no previous recent wbc is available to copare. Patient also found to have new onset atrial fibrillation and he was already on statin and coumadin.P Patient is improved, now oriented x 3. 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 Paitent has improved, and mental status has improved. and back pain seems to be due to arthritis, clinically no suspician for radiuclopathy or cauda equina syndrome or cord compression Concur with primary team and can be discharged home PLAN: avoid anticholinergic medicaiton - agree with mri of brain - B12,foalte tsh were normal - would continue to follow with primary Thanking you so much Guillermo Roth MD
[2018-06-23] MEDS: METOPROLOL TARTRATE 25 MG TABLET (FP) PO SCH (10:40)
[2018-06-23] MEDS: DOCUSATE SODIUM 100 MG CAPSULE (FP) PO SCH (10:40)
[2018-06-23] MEDS: LIDOCAINE 5% TOPICAL PATCH TP SCH (10:40)
[2018-06-23 10:49] VITALS: BP 120/50; PULSE 58; TEMP 97.5
--- NOTE | 2018-06-23 11:44 | DS ---
Physical Exam: SUBJECTIVE: Patient seen and examined, back pain better, having breakfast, eager to go home. OBJECTIVE: Vital Signs Period Temp Pulse Resp BP Sys/Rinaldi Pulse Ox Last 24 Hr 97.5 F-98.9 F 58-71 18-20 110-146/50-92 93-96 Intake & Output 06/20/18 06/21/18 06/22/18 06/23/18 23:59 23:59 23:59 23:59 Intake Total 560 188 7364 Output Total 875 525 Balance 120 45 545 Weight 175 lb 175 lb PHYSICAL EXAM GENERAL: The patient is awake, alert, and fully oriented, in no acute distress. HEAD: Normal with no signs of trauma. EYES: PERRL, extraocular movements intact, sclera anicteric, conjunctiva clear. ENT: Ears normal, nares patent, oropharynx clear without exudates, moist mucous membranes. NECK: Trachea midline, full range of motion, supple. LUNGS: Breath sounds equal, clear to auscultation bilaterally, no wheezes, no crackles, no accessory muscle use. HEART: S1S2 irregular ABDOMEN: Soft, nontender, nondistended, normoactive bowel sounds, no guarding, EXTREMITIES: 2+ pulses, warm, well-perfused, no edema. NEUROLOGICAL: AAOX3, power 5/5 facial symmetry, tongue midline, no pronator drift, EOMI, PERRL PSYCH: Normal mood, normal affect. SKIN: Warm, dry, normal turgor, no rashes or lesions noted. LABS Laboratory Results - last 24 hr 06/22/18 06/23/18 06/23/18 17:20 06:15 06:15 WBC 2.3 L RBC 3.57 L Hgb 11.6 L Hct 32.8 L MCV 91.8 MCH 32.6 MCHC 35.5 RDW 13.9 Plt Count 85 L MPV 9.0 Absolute Neuts (auto) 1.4 L Neutrophils % 60.6 Lymphocytes % 27.3 Monocytes % 8.7 Eosinophils % 2.7 Basophils % 0.7 Nucleated RBC % 0 PT with INR 33.80 H INR 2.83 H Sodium Potassium Chloride Carbon Dioxide Anion Gap BUN Creatinine Creat Clearance w eGFR Random Glucose Calcium Magnesium Total Bilirubin AST ALT Alkaline Phosphatase LD Total Creatine Kinase Creatine Kinase Index CK-MB (CK-2) Total Protein Albumin Opiates Screen Negative Methadone Screen Negative Barbiturate Screen Negative Phencyclidine Screen Negative Ur Amphetamines Screen Negative MDMA (Ecstasy) Screen Negative Benzodiazepines Screen Positive A* Cocaine Screen Negative U Marijuana (THC) Screen Negative 06/23/18 06:15 WBC RBC Hgb Hct MCV MCH MCHC RDW Plt Count MPV Absolute Neuts (auto) Neutrophils % Lymphocytes % Monocytes % Eosinophils % Basophils % Nucleated RBC % PT with INR INR Sodium 142 Potassium 3.5 Chloride 110 H Carbon Dioxide 24 Anion Gap 8 BUN 24 H Creatinine 1.3 Creat Clearance w eGFR 52.34 Random Glucose 93 Calcium 7.6 L Magnesium 2.2 Total Bilirubin 0.8 AST 52 H ALT 29 Alkaline Phosphatase 57 LD Total 376 H Creatine Kinase 338 H Creatine Kinase Index 0.6 CK-MB (CK-2) 2.2 Total Protein 5.8 L Albumin 2.6 L Opiates Screen Methadone Screen Barbiturate Screen Phencyclidine Screen Ur Amphetamines Screen MDMA (Ecstasy) Screen Benzodiazepines Screen Cocaine Screen U Marijuana (THC) Screen CT Chest/Abdomen/Pelvis - FINDINGS: LUNGS: Dependent atelectasis. No endobronchial lesions seen. The study is limited from motion artifact. PLEURA: Negative MEDIASTINUM: Right hilar calcifications likely granulomatous. CARDIAC: Dilatation of the root of the aorta measuring 4.3 cm noted. Vascular calcifications noted including coronary. No pericardiac effusion seen. LIVER: Negative. GALLBLADDER: Small dependent gallstones are suspected. No pericholecystic fluid or stranding seen. BILIARY DUCTS: Negative. PANCREAS: Negative. SPLEEN: Mild splenomegaly measuring 14.2 cm. ADRENALS: Negative. KIDNEYS: Multiple renal cysts noted with 3 large cyst within the left kidney measuring 4.1, 3.8, and 5 cm. Nonobstructing nephrolithiasis is present within the upper pole of the right kidney measuring up to 3 mm. Saphenous some gallstones are seen. A small nonobstructing 3 mm stone noted in the middle pole and a 2 mm nonobstructing stone noted within the lower pole. Vascular calcifications noted including intrarenal bilaterally. AORTA: Calcified plaque is present. It involves the ostium of the mesenteric and renal arteries. The aorta is normal in caliber. A proximal graft is visualized on the left with a metallic stent within the SFA proximally. Postsurgical changes are present in the left groin. LYMPH NODES: Negative. BOWEL: Foodstuff within the stomach. There is no evidence of bowel obstruction. No evidence to suggest appendicitis, the appendix was not clearly visualized. Diverticulosis with no evidence to suggest acute diverticulitis. No free air/fluid identified. No drainable fluid collections are seen. PELVIS: The bladder is physiologically distended. Prostate and seminal vesicles appear unremarkable. OTHER: No aggressive bone lesions seen. Spondylotic changes present. No displaced rib fractures were identified. A lytic well-demarcated lesion is identified posterior and inferior to the right femoral head which was present on prior study from 2010. Preliminary dictation was generated by the on-call radiologist at the time of this procedure. 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 There is some limitations by motion as discussed above. No acute changes are seen. Additional comments noted above. CT Head/C-spine - CT scan of the brain. A noncontrast CT scan of the brain was performed. There is moderate volume loss and ventricular dilatation. Moderate chronic microvascular ischemic changes are present No mass lesion, gross acute infarct or intracranial hemorrhage are identified. There is mild mucosal thickening in the ethmoid air cells. Otherwise, the visualized paranasal sinuses and mastoid air cells are well aerated. Calcification of the cavernous carotid arteries are noted. The calvarium is intact . Impression: Moderate atrophy. No gross evidence of a focal intracranial lesion or hemorrhage is seen. Correlate clinically to determine further evaluation and follow-up. A preliminary report was forwarded by the [facility], [employer] CT scan of the cervical spine without intravenous contrast Coronal and sagittal reconstruction images were obtained. No gross fracture, subluxation or prevertebral soft tissue swelling is seen. No jumped facets are identified. Moderate to marked degenerative disc disease at C6-C7 level and mild to moderate degenerative disc disease at C5-C6 level. There is very minimal anterolisthesis of C5 over C6, likely degenerative. C5 -C6 right and C6-C7 left uncovertebral hypertrophy moderately narrowing the neural foramina. Visualized portion of the airway appears unremarkable. No gross enlarged lymph nodes are identified. Lung windows at the thoracic inlet appear unremarkable. IMPRESSION: The alignment is satisfactory. No gross fracture or subluxation is seen. No jumped facets are identified. Multilevel degenerative disc disease, as described above. Abdomen US - Upper abdomen ultrasound. The liver measures 16 cm in sagittal length with a slightly dense and coarse echotexture. The gallbladder is adequately distended with multiple small stones and likely a sludge layering posteriorly and without wall thickening or pericholecystic free fluid. No intra or extrahepatic bile duct dilatation is seen. The right and left kidney measured 11.3 and 11 cm , respectively. There is a small cyst in the right mid kidney measuring 1.2 x 0.5 cm. A couple of left renal simple cysts with the largest in its mid to lower pole measuring 5.3 x 4 cm. There is no evidence of hydronephrosis or renal stones, bilaterally. The spleen measures 14 cm in sagittal length with homogeneous echotexture. Visualized portion of the pancreas appears unremarkable. Visualized portion of the proximal abdominal aorta and inferior vena cava appear unremarkable. Normal flow in the main portal vein. A trace of free fluid is present around the spleen. IMPRESSION: Mild fatty infiltration of the liver versus hepatocellular disease. Please correlate with liver enzymes. Small stones and likely a small sludge in the gallbladder without sonographic evidence of acute cholecystitis. Splenomegaly with a trace of free fluid/ascites in the left upper abdomen. Bilateral renal simple cysts with the largest in the left kidney measuring 5.3 x 4 cm MRI LS spine - MRI OF LUMBOSACRAL SPINE WITHOUT IV CONTRAST. Multiple pulse sequences were completed utilizing [employer] 1.5T SIGNA MRI system. Sagittal: T1, T2, STIR. Axial: T1 , T2. Coronal: T2. Comparison study CT of lumbosacral spine June 18, 2018 Findings. The alignment of vertebral elements from T10-T11 through upper sacrum is within normal limits. Normal lumbar lordosis noted. Disc desiccation is seen in the lower thoracic throughout the lumbosacral spine. T10-T11 through L5-S1. The disc spaces show normal contours posteriorly where the interface with thecal sac. There is no evidence of congenital or acquired discogenic, degenerative causes for compromise of the canal, lateral recesses, or foramina. No evidence of disc herniation, spinal stenosis, or effacement epidural fat in the neural foramina. No compression of neural structures traversing through the neural foramina. Normal conus medullaris terminates at the superior aspect of L2. Normal signal intensity of the lower thoracic cord. The cauda equina nerve roots are normal. Normal height of vertebral bodies. No evidence of compression deformities, spondylolisthesis or spondylolysis. Multilevel facet joint arthropathy. No evidence of edema in the region of the spinous processes. No pathological bone marrow replacement or bone marrow edema is seen. Intact pedicles On T2 coronal images, no hydronephrosis is seen. Bilateral renal cysts. No hepatic or splenic lesions are seen within the limitation of examination.. Gallbladder sludge cannot be entirely excluded. Uniform signal intensity of the bone marrow is seen in the visualized pelvis, proximal femur bilaterally. The paraspinal soft tissue structures are normal. Normal contour of the abdominal aorta. Normal signal intensity of the psoas muscles. IMPRESSION. No evidence of disc herniation, spinal canal stenosis, neural foraminal stenosis. Normal signal intensity of the bone marrow. Facet joint arthropathy. No evidence of bone marrow edema, soft tissue edema in the region of the spinous processes. MRI brain - Findings. The intracranial contents are shown well from the wilcox magnum to the cranial vertex. There is no evidence of abnormal restricted diffusion in the brain to suggest acute or subacute infarction. Brainstem gliosis. Increased signal intensity n the bilateral thalami on T2, FLAIR WI, gliosis Generalized loss of volume of the brain parenchyma. Widened cerebellar sulci, prominent retrocerebellar cistern with hypoplastic vermis. Dilatation of the lateral ventricles, third ventricle fourth ventricle. The cortical sulci sylvian fissures are widened. Extensive diffuse coalescent increased signal intensity of the periventricular white matter, centrum semiovale - combination of gliosis, chronic microangiopathic ischemic changes increased extracellular fluid. , There is no evidence hemorrhage, mass effect, midline shift, intra or extra axial collections. The major caliber vascular structures including the [place] and peripheral dural venous sinuses show normal flow-void signal characteristics. No abnormality seen in the pontomedullary junction region. No evidence of tonsillar ectopia. The sella turcica. No evidence of opacification the paranasal sinuses, mastoid air cells. Normal signal intensity of the calvarium. IMPRESSION. There is no evidence of abnormal restricted diffusion in the brain to suggest acute or subacute infarction. Moderate diffuse supratentorial, infratentorial loss of volume of the brain parenchyma. Extensive supratentorial chronic diffuse coalescent increased signal intensity of the periventricular white matter, centrum semiovale on the basis of gliosis, microangiopathic ischemic changes. Bilateral thalami, brainstem gliosis. Bladder US - Real time examination of the pelvis demonstrates the following: Evaluation of the urinary bladder demonstrates no intrinsic bladder abnormalities. Bilateral ureteral jets are visualized. A pre-void bladder volume of 325 cc was calculated. A post voiding image demonstrates incomplete emptying of the bladder with a large postvoid residual 119 cc. The prostate gland is slightly prominent. A total prostate volume of 29.4 cc was calculated. IMPRESSION: 1. Large post void residual. 2. Prominent prostate gland. Microbiology 06/21/18 00:03 Blood - Peripheral Venous Blood Culture - Preliminary NO GROWTH OBTAINED AFTER 48 HOURS, INCUBATION TO CONTINUE FOR 3 DAYS. 06/21/18 00:10 Blood - Peripheral Venous Blood Culture - Preliminary NO GROWTH OBTAINED AFTER 48 HOURS, INCUBATION TO CONTINUE FOR 3 DAYS. 06/21/18 00:03 Urine - Urine Clean Catch Urine Culture - Final HOSPITAL COURSE: Date of Admission:06/21/18 Date of Discharge: 06/23/18 Minutes to complete discharge: 40 Discharge Summary Reason For Visit: FEVER Current Active Problems Fever (Acute) Hospital Course: 88 yom with PMHx of PAD with multiple revascularisations per family on coumadin , recently seen in ED with fall, s/p non concerning CT LS spine,sent home on tramadol/flexeril, brought in with an eipsode of confusion and noted with temperature of 100.9. He had CT brain/C-spine/Chest/Abdomen/Pelvis in the ED, negative for concerns. Infectious disease was consulted and he was transiently placed on ceftriaxone. Given negative infectious work up and no further fevers, his antibotics were discontinued. Neurology was consulted. His mental status was at baseline during his stay. He had MRI brain that was negative for concerns. He also had MRI Lumbosacral spine that was negative for acute concerns. He was placed on lidocaine patch and his tramadol/flexeril were held on discharge as could have contributed to his mental status prior to admission. He was evaluated by physical therapy, however family expressed wishes to take him home and home services have been arranged. He was noted with new leucopenia and thrombocytopenia. Family and PCP confirmed no ETOH use history. His abdominal ultrasound showed splenomegaly with trace ascitis. He had normal WBC and platelets in 03/[address] Elizondo. His flow cytometry and immunological studies have been sent, results of which are currently pending and will be followed outpatient. He was continued on his coumadin with therapeutic INR and no concerns. He was also found with new onset atrial fibrillation with RVR. Cardiology was consulted, he had 2D echo with EF 55-60%, mild MR/AR. He was started on metoprolol and continued on coumadin. He was also noted with Acute kidney injury that resolved with hydration. Renal/ Bladder ultrasound were negative for concerns He will be discharged home with family in stable condition. Condition: Stable - Instructions Diet, Activity, Other Instructions: You were admitted with an episode of confusion and low grade fever. You were placed on short term antibiotics. Your CT scan of chest/belly, MRI brain were negative for concerns. Your antibiotics have been stopped. You were also found with irregular heart rhythm, atrial fibrillation You were seen by cardiology and started on new medication Toprol XL. Your blood counts WBC and Platelets were noted low and are overall unchanged during your hospital stay. Blood work has been sent and you will need to follow up with [facility] outpatient for further treatment. MEDICATIONS: You are advised to hold your tramadol and flexeril till seen by your doctor as could have contributed to confusion. Please take tylenol and lidocaine patch as needed. If persistent pain, you are advised to resume flexeril at lower dose 5 mg once daily as needed and stop if any new confusion, sleepiness, dizziness or lethargy noted. You are started on new medication for heart Toprol XL. If you notice any dizziness on this medication, please stop the medication and call your doctor. Continue warfarin as before. DIET: Cardiac maintain adequate hydration. ACTIVITY: With full assist and supervision. You are arranged for home physical therapy. FOLLOW UP BLOOD WORK: CBC (complete Blood count), Basic metabolic panel and INR on Monday or Monday with Dr. Elizondo. You blood work "flow cytometry" and immunological studies have been sent, results are currently pending. Please follow up with Dr. Elizondo or master brewer for results next week and further test. FOLLOW UP: With Dr. Elizondo in 5-7 days With edi programmer analyst, neurologist and master brewer in 1-2 weeks Blood work CBC, BMP and INR as above. Ascending aortic aneurysm 4.3 cm, will need to be monitored outpatient If you notice any new fevers, chills, changes in mental status, dizziness, palpitations, abdominal, urinary symptoms or new concerns, please call 911 or come to ED. Referrals: Kyle Martines MD [Staff Physician] - Tom Alcantar MD [Staff Physician] - Darwin Avilez MD [Staff Physician] - Alli Elizondo MD [Primary Care Provider] - Disposition: VNS/HOME HEALTH CARE - Home Medications Comprehensive Discharge Medication List: Ambulatory Orders Docusate Sodium [Colace] 100 mg PO DAILY #20 capsule 06/18/18 Warfarin Sodium [Coumadin] 2.5 mg PO DAILY 06/21/18 Lidocaine 5% Patch [Lidoderm -] 1 patch TP DAILY PRN #5 patch 06/23/18 Metoprolol Succinate [Toprol Xl] 25 mg PO DAILY #30 tab.er.[id number] 06/23/18 This patient is new to me today: No Emergency Visit: Yes ED Registration Date: 06/21/18 Care time: The patient presented to the Emergency Department on the above date and was hospitalized for further evaluation of their emergent condition. Critical Care patient: No - Discharge Referral Referred to [facility] Med P.C.: No
[2018-06-23] MEDS ORDERED: chlordiazePOXIDE 5 MG CAPSULE PO PRN (13:00)
[2018-06-23] MEDS ORDERED: chlordiazePOXIDE 5 MG CAPSULE PO SCH (13:00)
[2018-06-26 19:13] LABS: FREE KAPPA,SERUM 60.9 mg/L (3.3-19.4)
== END 2018-06-23 13:51 | disposition home health service (06) | DRG 683 ==
LOC: JER 22:31 → INTOOBSV 06-21 03:05 → JERBED 06-21 03:05 → UNDOADMOB 06-21 03:05 → JERBED 06-21 04:50 → OBSVTOIN 06-21 09:26 → J4S 06-21 17:19
PROVIDERS: ADMIT Internal Medicine; ATTEND Hospitalist
DX: N17.9 Acute kidney failure, unspecified (principal); J98.11 Atelectasis; M62.82 Rhabdomyolysis; R18.8 Other ascites; I71.2 Thoracic aortic aneurysm, without rupture; I10 Essential (primary) hypertension; E78.5 Hyperlipidemia, unspecified; R41.0 Disorientation, unspecified; T48.1X5A Adverse effect of skeletal muscle relaxants [neuromuscular blocking agents], initial encounter; T40.4X5A Adverse effect of other synthetic narcotics, initial encounter; F10.10 Alcohol abuse, uncomplicated; D72.819 Decreased white blood cell count, unspecified; D69.6 Thrombocytopenia, unspecified; I73.9 Peripheral vascular disease, unspecified; R50.9 Fever, unspecified; M54.5 Low back pain; I48.0 Paroxysmal atrial fibrillation; N40.0 Benign prostatic hyperplasia without lower urinary tract symptoms; M51.36 Other intervertebral disc degeneration, lumbar region; M51.34 Other intervertebral disc degeneration, thoracic region; R55 Syncope and collapse; R16.1 Splenomegaly, not elsewhere classified; Z87.891 Personal history of nicotine dependence; Z79.01 Long term (current) use of anticoagulants; Z86.718 Personal history of other venous thrombosis and embolism; Y92.098 Other place in other non-institutional residence as the place of occurrence of the external cause
CPT/HCPCS: 36415; 70450-TC; 70551-TC; 71045-TC-FY; 71250-TC; 72125-TC; 72148-TC; 74176-TC; 76700-TC; 76856-TC; 80053; 80307; 81003; 81015; 82550; 82553; 82607; 82746; 82784; 82803; 82977; 83605; 83615; 83735; 83883; 84100; 84443; 84484; 85025; 85027; 85610; 85651; 85730; 86140; 87040; 87086; 87389; 87804; 93005; 93010; 93306-TC; 97116-GP; 97162-GP; 99282-25; G0378; J0131; J7030

== ENCOUNTER 2020-11-01 21:15 | Emergency (ER) | payer BC ==
[2020-11-01 21:25] VITALS: BP 176/65; PULSE 59; TEMP 97.9; BMI 26.8
[2020-11-01 22:26] LABS: BASO % 1.3 % (0-2.0); EOS % 3.7 % (0-4.5); HEMATOCRIT 38.4 % (35.4-49); HEMOGLOBIN 13.4 GM/dL (11.7-16.9); LYMPH % 25.9 % (8-40); MCH 32.3 pg (25.7-33.7); MCHC 34.8 g/dl (32.0-35.9); MEAN CELL VOLUME 92.7 fl (80-96); MEAN PLT VOLUME 7.3 fl (7.5-11.1); MONO % 8.7 % (3.8-10.2); NEUT % 60.4 % (42.8-82.8); PLATELET COUNT 182 10^3/uL (134-434); RBC 4.14 M/mm3 (4.00-5.60); RDW 13.3 % (11.9-15.9); WHITE BLOOD COUNT 5.3 K/mm3 (4.0-10.0)
[2020-11-01 22:36] LABS: INR 2.75 (0.83-1.09); PROTHROMBIN TIME (PATIENT) 32.3 SEC (9.7-13.0)
[2020-11-01 22:39] LABS: ACTIVATED PTT 41.3 SECONDS (25.2-36.5)
[2020-11-01 22:47] LABS: CALCIUM 8.5 mg/dL (8.5-10.1)
[2020-11-01 22:48] LABS: ALBUMIN 3.8 g/dl (3.4-5.0); BLOOD UREA NITROGEN 32.7 mg/dL (7-18)
[2020-11-01 22:51] LABS: CREATININE 1.5 mg/dL (0.55-1.3)
[2020-11-01 22:53] LABS: BILIRUBIN,TOTAL 0.8 mg/dL (0.2-1); TOT PROT 7.4 g/dl (6.4-8.2)
== END 2020-11-01 23:06 | disposition home or self-care (01) ==
LOC: JER 21:15
DX: R04.0 Epistaxis (principal)
CPT/HCPCS: 36415; 80053; 85025; 85610; 85730; 99283-25

== ENCOUNTER 2021-07-16 13:27 | Emergency (ER) | payer BC ==
[2021-07-16 14:02] VITALS: BP 130/57; PULSE 65; TEMP 98; BMI 26.9
[2021-07-16] MEDS ORDERED: BEBTELOVIMAB (EUA) 175 MG/2 ML VIAL IVPUSH ONE (14:27)
== END 2021-07-16 18:30 | disposition home or self-care (01) ==
LOC: JCOVINFU 13:27 → JER 13:27 → JCOVINFU 18:30
PROC: 3E033GC Introduction of Other Therapeutic Substance into Peripheral Vein, Percutaneous Approach (ICD-10-PCS; principal; 2021-07-16)
DX: U07.1 COVID-19 (principal)
CPT/HCPCS: 99284-25